=== PATIENT | female | born 1940 | race Caucasian/White ===

== ENCOUNTER 2018-11-08 08:38 | Day surgery (SDC) | payer OTHER, BC ==
--- OUTSIDE RECORDS SUMMARY | 2018-11-08 08:42 | XMS REPORT | Clinical Summary ---
:1940 Author Organization [facility] Address [address] [place] [address] Care Team Providers Name Role Phone Jhon Kelley MD Primary Care Provider Allergies Active Allergy Reactions Severity Noted Date Comments Cephalexin 01/04/2016 Unknown reaction Levofloxacin 01/04/2016 Mouth trush Sulfa (Sulfonamide Other (See Comments) 01/04/2016 Mouth trush Antibiotics) Medications Medication Sig Dispensed Refills Start Date End Date Status thyroid, pork, Take 15 mg by 0 Active (ARMOUR THYROID) 15 mouth daily. mg tablet pravastatin Take 40 mg by 0 Active (PRAVACHOL) 40 MG mouth daily. tablet metFORMIN Take 1,000 mg by 0 Active (GLUCOPHAGE) 1,000 mouth 2 (two) mg tablet times a day with meals. gabapentin Take 600 mg by 0 Active (NEURONTIN) 300 mg mouth every capsule morning. aspirin (ECOTRIN) Take 81 mg by 0 Active 81 MG enteric mouth nightly. coated tablet benzonatate Take 100 mg by 0 Active (TESSALON) 100 MG mouth 3 (three) capsule times a day as needed for cough. spironolactone Take 1 tablet 90 tablet 3 04/20/2018 04/20/19 Active (ALDACTONE) 50 MG (50 mg total) by 20 tabletIndications: mouth daily. SOB (shortness of breath) doxepin (SINEquan) Take 50 mg by 0 Active 50 MG capsule mouth nightly. DULoxetine Take 60 mg by 0 Active (CYMBALTA) 60 MG mouth daily. capsule clopidogrel Take 75 mg by 0 Active (PLAVIX) 75 mg mouth nightly. tablet fluticasone 2 sprays by Each 0 Active (FLONASE) 50 Nare route daily mcg/actuation nasal as needed for spray rhinitis. traMADol (ULTRAM) Take 50 mg by 0 Active 50 mg tablet mouth every 6 (six) hours as needed for moderate pain. multivitamin Take 1 tablet by 0 Active (THERAGRAN) tablet mouth daily. LORATADINE-PSEUDOEP Take 1 tablet by 0 Active HEDRINE ORAL mouth daily as needed (for allergies). losartan-hydrochlor Take 1 tablet by 90 tablet 3 05/10/2018 Active othiazide (HYZAAR) mouth daily. 100-25 mg per tablet PROAIR HFA 90 INL 2 PFS PO QID 2 05/03/2018 Active mcg/actuation PRN inhaler doxepin (SINEquan) doxepin 50 mg 0 05/05/19 Discontinued 50 MG capsule capsule 19 DULoxetine duloxetine 60 mg 0 05/05/19 Discontinued (CYMBALTA) 60 MG capsule,delayed 19 capsule release fluticasone Inhale as needed 0 05/05/19 Discontinued (FLONASE) 50 by nasal route 19 mcg/actuation nasal for 30 days. spray clopidogrel clopidogrel 75 0 05/05/19 Discontinued (PLAVIX) 75 mg mg tablet 19 tablet magnesium oxide 400 Take 1 tablet by 0 05/05/19 Discontinued mg capsule mouth daily. 19 MULTIVITAMIN ORAL Take by mouth. 0 05/05/19 Discontinued Take daily as 19 directed ibuprofen Take 200 mg by 0 05/08/19 Discontinued (ADVIL,MOTRIN) 200 mouth every 6 19 MG tablet (six) hours as needed for mild pain. CETIRIZINE Take by mouth. 0 05/05/19 Discontinued HCL/PSEUDOEPHEDRINE Take daily 19 (ZYRTEC-D ORAL) losartan-hydrochlor Take 1 tablet by 0 01/06/20 Discontinued othiazide (HYZAAR) mouth daily. 18 100-25 mg per tablet amLODIPine Take 1 tablet 30 tablet 11 02/10/2017 01/06/20 Discontinued (NORVASC) 10 mg (10 mg total) by 18 tabletIndications: mouth daily. Coronary artery disease involving andreafski coronary artery of andreafski heart without angina pectoris, Essential hypertension, Other specified transient cerebral ischemias furosemide (LASIX) Take 1 tablet 90 tablet 3 02/13/2017 02/14/20 40 mg (40 mg total) by 18 tabletIndications: mouth daily. SOB (shortness of breath) potassium chloride Take 1 tablet 180 tablet 2 07/21/2017 01/06/20 Discontinued (K-DUR) 20 MEQ CR (20 mEq total) 18 tablet by mouth 2 (two) times a day. spironolactone Take 100 mg by 0 04/20/19 Discontinued (ALDACTONE) 100 MG mouth daily. 19 tablet carvedilol (COREG) Take 1 tablet 60 tablet 11 09/22/2017 01/06/20 Discontinued 6.25 MG tablet (6.25 mg total) 18 by mouth 2 (two) times a day. multivit with Take by mouth. 0 05/05/19 Discontinued iron,minerals 19 (CALCET PLUS ORAL) COZAAR 25 mg tablet 0 12/04/2017 04/20/19 Discontinued 19 carvedilol (COREG) Take 1 tablet 180 tablet 3 01/05/2018 05/04/19 Discontinued 12.5 MG tablet (12.5 mg total) 19 by mouth 2 (two) times a day. traMADol-acetaminop TK 1 T PO BID 2 01/29/2018 05/05/19 Discontinued hen (ULTRACET) PRN 19 37.5-325 mg per tablet losartan-hydrochlor Take 1 tablet by 0 05/10/19 Discontinued othiazide (HYZAAR) mouth daily. 19 100-25 mg per tablet carvedilol (COREG) 0 05/03/2018 05/04/19 Discontinued 3.125 MG tablet 19 loratadine-pseudoep Take 1 tablet by 0 05/05/19 Discontinued HEDrine (CLARITIN-D mouth daily as 19 24-hour) 10-240 mg needed for per 24 hr tablet allergies. furosemide (LASIX) Take 40 mg by 0 05/08/19 Discontinued 40 mg tablet mouth daily. 19 furosemide (LASIX) Take 1 tablet 60 tablet 0 05/08/2018 06/08/19 40 mg tablet (40 mg total) by 19 mouth 2 (two) times a day for 30 days. Active Problems Problem Noted Date Biventricular cardiac pacemaker in situ 05/20/2018 Overview: PM incision site is dry and healing well. 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 01/04/2016 Coronary arteriosclerosis in andreafski artery 01/04/2016 Occluded coronary artery stent 01/04/2016 Essential hypertension 01/04/2016 Hyperlipidemia 01/04/2016 Peripheral vascular disease 01/04/2016 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 Encounters Date Type Specialty Care Team Description 06/08/2018 Office Visit Cardiology Daryl Bradycardia (Primary Ivanna Gardner) 06/08/2018 Orders Only Cardiology Hugo Brito MD 05/20/2018 Office Visit Cardiology Celine Reagan Bradycardia (Primary Dx); Zee Mcbride NP Essential hypertension; S/P TAVR (transcatheter aortic valve replacement); Biventricular cardiac pacemaker in situ 05/10/2018 Refill Cardiology Evens Hernandez Refill Elvia Tim, FORTINO 05/08/2018 Patient Outreach Quality Stepahnie Kingston, FORTINO 05/06/2018 Surgery Procedural Daryl, Pacemaker insertion Cardiology Hugo Anna, new or replacement MD Edson Ann [[id number] (CPT)] 05/05/2018 - Hospital Encounter General Internal Aide Lindquist, Bradycardia (Primary 05/08/2018 Medicine MD Dx) Dontae Rebollar DO 05/04/2018 Office Visit Cardiology Rene Vilchis SOB (shortness of breath) ( Primary Dx); MD Dena Aortic valve disorder; S/P TAVR (transcatheter aortic valve replacement); Dizzy; Bradycardia 04/20/2018 Office Visit Cardiology Rene Vilchis Dizzy (Primary Dx); MD Dena SOB (shortness of breath); Coronary artery disease involving andreafski coronary artery of andreafski heart without angina pectoris; History of coronary artery bypass graft; S/P TAVR (transcatheter aortic valve replacement) 01/05/2018 Office Visit Cardiology Rene Vilchis History of coronary artery bypass graft (Primary Dx); MD Dena S/P TAVR (transcatheter aortic valve replacement) after 11/07/2017 Family History Medical History Relation Name Comments Cancer Father Diabetes Maternal Grandmother Heart disease Maternal Grandmother Cancer Mother Diabetes Mother Relation Name Status Comments Father bladder Maternal Grandmother Mother Social History Tobacco Use Types Packs/Day Years Used Date Former Smoker Smokeless Tobacco: Never Used Alcohol Use Drinks/Week oz/Week Comments No Sex Assigned at Date Recorded Not on file Job Start Date Occupation Industry Not on file Not on file Not on file Travel History Travel Start Travel End No recent travel history available. Last Filed Vital Signs Vital Sign Reading Time Taken Blood Pressure 117/56 06/08/2018 8:54 AM CDT Pulse 93 06/08/2018 8:54 AM CDT Temperature 37 C (98.6 F) 05/08/2018 11:53 AM CAN REFORMING MACHINE OPERATOR Respiratory Rate 14 06/08/2018 8:54 AM CDT Oxygen Saturation 96% 05/08/2018 11:53 AM CAN REFORMING MACHINE OPERATOR Inhaled Oxygen Concentration - - Weight 104 kg (230 lb) 06/08/2018 8:54 AM CDT Height 160 cm (5' 3") 06/08/2018 8:54 AM CDT Body Mass Index 40.74 06/08/2018 8:54 AM CDT Plan of Treatment Date Type Specialty Care Team Description 12/14/2018 Office Visit Cardiology Hugo Brito MD [address] [facility] [address] [place] [address] [phone] 04/19/2019 Office Visit Cardiology Rene Vilchis MD [address] [phone] Health Maintenance Due Date Last Done Comments SHINGLES VACCINES (#1) 01/01/1990 65+ PNEUMOCOCCAL VACCINE (1 of 2 - PCV13) 01/01/2005 INFLUENZA VACCINE 10/28/2018 Implants Implanted Type Area Development Analyst Device Shelf Model / Identifier Expiration Serial / Date Lot Ellen Peters Mp - [id number] - [id number] Cardiac Pacemaker N/A: 2019 [id number] / Implanted: Qty: 1 on 05/06/2018 by Hugo Brito MD Generators N/ A [id number] / [id number] Tendril Sts, Pacemaker Leads, Model 2088tc/58 - [id number] - [id number] Cardiac Pacing N/A: 12/28/2019 [id number]/58 / Implanted: Qty: 1 on 05/06/2018 by Hugo Brito MD Leads or N/A [id number] / Electrodes or [id number] Accessories Quartet, Lv Leads, Model 1458q-86 - [id number] - [id number] Cardiac Pacing N/ A: 01/27/2021 [id number] / Implanted: Qty: 1 on 05/06/2018 by Hugo Brito MD Leads or N/A [id number] / Electrodes or [id number] Accessories Tendril Sts, Pacemaker Leads, Model 2087tc/52 - [id number] - [id number] Cardiac Pacing N/A: 01/27/20212087TC/52 / Implanted: Qty: 1 on 05/06/2018 by Hugo Brito MD Leads or N/A [id number] / Electrodes or [id number] Accessories Envelope Pcemkr Antbactl Fully Resorb Aigisrxr - [id number] Cardiovascular N/A: [employer] [id number] / Implanted: 05/06/2018 (Quantity not on file) Implants N/A / Procedures Procedure Name Priority Date/Time Associated Comments Diagnosis ECG 12-LEAD Routine 06/08/2018 8:54 Bradycardia Results for this AM CDT procedure are in the results section. CV PACEMAKER DEFIB ILR Routine 06/08/2018 INTERROGATION ECG 12-LEAD Routine 05/20/2018 9:34 Bradycardia Results for this AM CAN REFORMING MACHINE OPERATOR procedure are in the results section. CV PACEMAKER DEFIB ILR Routine 05/20/2018 INTERROGATION POC GLUCOSE Routine 05/08/2018 11:49 Results for this AM CAN REFORMING MACHINE OPERATOR procedure are in the results section. POC GLUCOSE Routine 05/08/2018 7:29 Results for this AM CAN REFORMING MACHINE OPERATOR procedure are in the results section. ESTIMATED GFR Routine 05/08/2018 4:10 Results for this AM CAN REFORMING MACHINE OPERATOR procedure are in the results section. COMPREHENSIVE METABOLIC Routine 05/08/2018 4:10 Results for this PANEL AM CAN REFORMING MACHINE OPERATOR procedure are in the results section. CBC WITH PLATELET AND Routine 05/08/2018 4:10 Results for this DIFFERENTIAL AM CAN REFORMING MACHINE OPERATOR procedure are in the results section. MAGNESIUM LEVEL Routine 05/08/2018 4:10 Results for this AM CAN REFORMING MACHINE OPERATOR procedure are in the results section. POC GLUCOSE Routine 05/07/2018 8:54 Results for this PM CAN REFORMING MACHINE OPERATOR procedure are in the results section. POC GLUCOSE Routine 05/07/2018 5:17 Results for this PM CAN REFORMING MACHINE OPERATOR procedure are in the results section. POC GLUCOSE Routine 05/07/2018 10:28 Results for this AM CAN REFORMING MACHINE OPERATOR procedure are in the results section. POC GLUCOSE Routine 05/07/2018 7:50 Results for this AM CAN REFORMING MACHINE OPERATOR procedure are in the results section. POC GLUCOSE Routine 05/07/2018 5:55 Results for this AM CAN REFORMING MACHINE OPERATOR procedure are in the results section. ESTIMATED GFR Routine 05/07/2018 3:42 Results for this AM CAN REFORMING MACHINE OPERATOR procedure are in the results section. PROTHROMBIN TIME WITH Routine 05/07/2018 3:42 Results for this INR AM CAN REFORMING MACHINE OPERATOR procedure are in the results section. COMPREHENSIVE METABOLIC Routine 05/07/2018 3:42 Results for this PANEL AM CAN REFORMING MACHINE OPERATOR procedure are in the results section. CBC WITH PLATELET AND Routine 05/07/2018 3:42 Results for this DIFFERENTIAL AM CAN REFORMING MACHINE OPERATOR procedure are in the results section. MAGNESIUM LEVEL Routine 05/07/2018 3:42 Results for this AM CAN REFORMING MACHINE OPERATOR procedure are in the results section. ECG PRE/POST OP Routine 05/07/2018 12:58 Results for this AM CAN REFORMING MACHINE OPERATOR procedure are in the results section. XR CHEST 1 VW PORTABLE STAT 05/06/2018 9:09 Results for this PM CAN REFORMING MACHINE OPERATOR procedure are in the results section. POC GLUCOSE Routine 05/06/2018 8:46 Results for this PM CAN REFORMING MACHINE OPERATOR procedure are in the results section. ECG PRE/POST OP STAT 05/06/2018 7:47 Results for this PM CAN REFORMING MACHINE OPERATOR procedure are in the results section. EP PACEMAKER INSERTION Routine 05/06/2018 6:55 Results for this NEW OR REPLACEMENT PM CAN REFORMING MACHINE OPERATOR procedure are in the results section. ESTIMATED GFR STAT 05/06/2018 11:44 Results for this AM CAN REFORMING MACHINE OPERATOR procedure are in the results section. BASIC METABOLIC PANEL STAT 05/06/2018 11:44 Results for this AM CAN REFORMING MACHINE OPERATOR procedure are in the results section. POC GLUCOSE Routine 05/06/2018 11:24 Results for this AM CAN REFORMING MACHINE OPERATOR procedure are in the results section. POC GLUCOSE Routine 05/06/2018 7:53 Results for this AM CAN REFORMING MACHINE OPERATOR procedure are in the results section. XR CHEST 1 VW PORTABLE Routine 05/06/2018 5:20 Results for this AM CAN REFORMING MACHINE OPERATOR procedure are in the results section. TYPE AND SCREEN Routine 05/06/2018 3:50 Results for this AM CAN REFORMING MACHINE OPERATOR procedure are in the results section. ESTIMATED GFR Routine 05/06/2018 2:48 Results for this AM CAN REFORMING MACHINE OPERATOR procedure are in the results section. COMPREHENSIVE METABOLIC Routine 05/06/2018 2:48 Results for this PANEL AM CAN REFORMING MACHINE OPERATOR procedure are in the results section. HC COMPLETE BLD COUNT Routine 05/06/2018 2:48 Results for this W/AUTO DIFF AM CAN REFORMING MACHINE OPERATOR procedure are in the results section. MAGNESIUM LEVEL Routine 05/06/2018 2:48 Results for this AM CAN REFORMING MACHINE OPERATOR procedure are in the results section. LIPID PANEL Routine 05/06/2018 2:48 Results for this AM CAN REFORMING MACHINE OPERATOR procedure are in the results section. HEMOGLOBIN A1C Routine 05/06/2018 2:48 Results for this AM CAN REFORMING MACHINE OPERATOR procedure are in the results section. POC GLUCOSE Routine 05/05/2018 9:11 Results for this PM CAN REFORMING MACHINE OPERATOR procedure are in the results section. ECG 12-LEAD Routine 05/05/2018 9:04 Results for this PM CAN REFORMING MACHINE OPERATOR procedure are in the results section. TROPONIN STAT 05/05/2018 6:02 Results for this PM CAN REFORMING MACHINE OPERATOR procedure are in the results section. MAGNESIUM LEVEL STAT 05/05/2018 6:02 Results for this PM CAN REFORMING MACHINE OPERATOR procedure are in the results section. ESTIMATED GFR STAT 05/05/2018 6:02 Results for this PM CAN REFORMING MACHINE OPERATOR procedure are in the results section. BASIC METABOLIC PANEL STAT 05/05/2018 6:02 Results for this PM CAN REFORMING MACHINE OPERATOR procedure are in the results section. HC COMPLETE BLD COUNT STAT 05/05/2018 6:00 Results for this W/AUTO DIFF PM CAN REFORMING MACHINE OPERATOR procedure are in the results section. POC GLUCOSE Routine 05/05/2018 5:25 Results for this PM CAN REFORMING MACHINE OPERATOR procedure are in the results section. T4, FREE Routine 05/05/2018 2:26 Results for this PM CAN REFORMING MACHINE OPERATOR procedure are in the results section. THYROID STIMULATING Routine 05/05/2018 2:26 Results for this HORMONE PM CAN REFORMING MACHINE OPERATOR procedure are in the results section. TROPONIN Timed 05/05/2018 2:26 Results for this PM CAN REFORMING MACHINE OPERATOR procedure are in the results section. XR CHEST 1 VW PORTABLE STAT 05/05/2018 12:36 Results for this PM CAN REFORMING MACHINE OPERATOR procedure are in the results section. THYROID STIMULATING STAT 05/05/2018 12:10 Results for this HORMONE PM CAN REFORMING MACHINE OPERATOR procedure are in the results section. ESTIMATED GFR STAT 05/05/2018 12:10 Results for this PM CAN REFORMING MACHINE OPERATOR procedure are in the results section. PARTIAL THROMBOPLASTIN STAT 05/05/2018 12:10 Results for this TIME (PTT) PM CAN REFORMING MACHINE OPERATOR procedure are in the results section. B NATRIURETIC PEPTIDE STAT 05/05/2018 12:10 Results for this PM CAN REFORMING MACHINE OPERATOR procedure are in the results section. TROPONIN STAT 05/05/2018 12:10 Results for this PM CAN REFORMING MACHINE OPERATOR procedure are in the results section. COMPREHENSIVE METABOLIC STAT 05/05/2018 12:10 Results for this PANEL PM CAN REFORMING MACHINE OPERATOR procedure are in the results section. HC COMPLETE BLD COUNT STAT 05/05/2018 12:10 Results for this W/AUTO DIFF PM CAN REFORMING MACHINE OPERATOR procedure are in the results section. IA CRITICAL CARE, E/M Routine 05/05/2018 12:08 Results for this 30-74 MINUTES PM CAN REFORMING MACHINE OPERATOR procedure are in the results section. ECG 12-LEAD STAT 05/05/2018 11:46 Results for this AM CAN REFORMING MACHINE OPERATOR procedure are in the results section. ECHOCARDIOGRAM 2D Routine 04/28/2018 4:51 Dizzy Results for this COMPLETE W MMODE PM CAN REFORMING MACHINE OPERATOR SOB (shortness of procedure are in SPECTRAL COLOR DOPPLER breath) the results (13404) section. US CAROTID DUPLEX Routine 04/20/2018 2:00 Dizzy Results for this BILATERAL PM CAN REFORMING MACHINE OPERATOR SOB (shortness of procedure are in breath) the results Coronary artery section. disease involving andreafski coronary artery of andreafski heart without angina pectoris ECG 12-LEAD Routine 04/20/2018 11:22 Dizzy Results for this AM CAN REFORMING MACHINE OPERATOR SOB (shortness of procedure are in breath) the results section. after 11/07/2017 Results ECG 12 lead (06/08/2018 8:54 AM CDT)Only the most recent of5 resultswithin the time period is included. Ventricular rate 82 [facility] Atrial rate 82 [facility] IA interval 136 [facility] QRSD interval 168 [facility] QT interval 438 [facility] QTC interval 511 [facility] P axis 1 73 [facility] QRS axis 1 261 [facility] T wave axis 39 [facility] EKG impression Electronic ventricular [facility] pacemaker-In automated comparison with ECG of 20-MAY-2018 09:34,-Vent. rate has increased BY 7 BPM- Specimen Narrative Performed At Performing Organization Address City/State/Zipcode Phone Number [facility] MUSE [address] [place] [phone] CV pacemaker defib or ilr interrogation (06/08/2018) Narrative Performed At CV pacemaker defib or ilr interrogation (05/20/2018) Narrative Performed At POC glucose (05/08/2018 11:49 AM CAN REFORMING MACHINE OPERATOR)Only the most recent of12 resultswithin the time period is included. [facility] POC glucose 176 (H) 65 - 99 mg/dL [facility] Comment: [facility] Notified RN Meter ID: [id number] Zinc Plater: Aldo Douglas Specimen Performing Organization Address [facility] Phone Number [facility] DEPARTMENT OF PATHOLOGY AND [address] [place] [address] Estimated GFR (05/08/2018 4:10 AM CAN REFORMING MACHINE OPERATOR)Only the most recent of6 resultswithin the time period is included. [facility] Estimated GFR 57 (A) mL/min/1.73 [facility] Comment: [address] CatergoryUnitsInterpretation G1 >=90 Normal or high G2 60-89Mildly decreased [id number] to moderately decreased [id number] to severely decreased G4 15-29Severely decreased G5 <15Kidney failure The eGFR was calculated using the Chronic Kidney Disease Epidemiology Collaboration (CKD-EPI) equation. Interpretation is based on recommendations of the National Kidney Foundation-Kidney Disease Outcomes Quality Initiative (NKF-KDOQI) published in 2014. Specimen Plasma specimen Performing Organization Address City/[facility]/Zipcode Phone Number [facility] DEPARTMENT OF PATHOLOGY AND [address] [place] [address] CBC with platelet and differential (05/08/2018 4:10 AM CAN REFORMING MACHINE OPERATOR)Only the most recent of5 resultswithin the time period is included. [facility] WBC 10.37 4.50 - 11.00 [facility] k/uL [facility] RBC 3.97 (L) 4.20 - 5.50 [facility] m/uL [facility] HGB 12.3 12.0 - 16.0 [facility] g/dL [facility] HCT 39.6 37.0 - 47.0 % [facility] MCV 99.7 82.0 - 100.0 [facility] MCH 31.0 27.0 - 34.0 pg [facility] MCHC 31.1 31.0 - 37.0 [facility] g/dL [facility] RDW - SD 53.6 37.0 - 55.0 fL [facility] MPV 10.9 8.8 - 13.2 fL [facility] Platelet count 276 150 - 400 k/uL [facility] Nucleated RBC 0.00 /100 WBC [facility] Neutrophils 59.5 39.0 - 69.0 % [facility] Lymphocytes 22.7 (L) 25.0 - 45.0 % [facility] Monocytes 9.3 0.0 - 10.0 % [facility] Eosinophils 7.3 (H) 0.0 - 5.0 % [facility] Basophils 0.9 0.0 - 1.0 % [facility] Immature granulocytes 0.3Comment: 0.0 - 1.0 % [facility] "Immature [facility] granulocytes" (promyelocytes , myelocytes, metamyelocytes ) Specimen Blood Performing Organization Address City/[facility] Phone Number [facility] DEPARTMENT OF PATHOLOGY AND [address] [place] [phone] Magnesium level (05/08/2018 4:10 AM CAN REFORMING MACHINE OPERATOR)Only the most recent of4 resultswithin the time period is included. Magnesium 2.1 1.6 - 2.4 mg/dL [facility] Specimen Plasma specimen Performing Organization Address City/[facility] Phone Number [facility] DEPARTMENT OF PATHOLOGY AND [address] [place] [phone] Comprehensive metabolic panel (05/08/2018 4:10 AM CAN REFORMING MACHINE OPERATOR)Only the most recent of4 resultswithin the time period is included. Sodium 135 135 - 148 [facility] mEq/L [facility] Potassium 4.0 3.5 - 5.0 [facility] mEq/L [facility] Chloride 96 (L) 98 - 112 mEq/L [facility] CO2 27 24 - 31 mEq/L [facility] Anion gap 12@ANIO 7 - 15 mEq/L [facility] BUN 23 8 - 23 mg/dL [facility] Creatinine 0.96 (H) 0.50 - 0.90 [facility] mg/dL HOSPITAL Glucose 162 (H) 65 - 99 mg/dL [facility] Calcium 9.5 8.8 - 10.2 [facility] mg/dL [facility] Protein 7.2 6.3 - 8.3 g/dL [facility] Comment: [facility] [place] 4.6-7.0 g/dL 1 week 4.4-7.6 g/dL 7 months-1year5.1-7.3 g/dL 1-2 years5.6-7.5 g/dL >3 years6.0-8.0 g/dL 18-150 6.3-8.3 g/dL Albumin 3.8 3.5 - 5.0 g/dL [facility] A/G ratio 1.1 0.7 - 3.8 [facility] Alkaline phosphatase 85 35 - 104 U/L [facility] AST 18 10 - 35 U/L [facility] ALT 11 5 - 50 U/L [facility] Total bilirubin 0.7 0.0 - 1.2 [facility] mg/dL [facility] Specimen Plasma specimen Performing Organization Address City/[facility]/Zipcode Phone Number [facility] DEPARTMENT OF PATHOLOGY AND [address] [place] [phone] Prothrombin time with INR (05/07/2018 3:42 AM CAN REFORMING MACHINE OPERATOR) Prothrombin time 14.3 11.5 - 14.5 [facility] INR 1.1 [place] Comment: [facility] International Normalized Ratio (INR) is a therapeutic HOSPITAL monitoring tool for patients who are stable on oral anticoagulant therapy. An INR of 2.0-3.0 is suggested for deep vein thrombosis/pulmonary embolism. Specimen Blood Performing Organization Address City/[facility]/Zipcode Phone Number [facility] DEPARTMENT OF PATHOLOGY AND [address] [place] [phone] ECG Pre/Post Op-Tomorrow (05/07/2018 12:58 AM CAN REFORMING MACHINE OPERATOR)Only the most recent of2 resultswithin the time period is included. Ventricular rate 68 [facility] Atrial rate 68 [facility] IA interval 156 [facility] QRSD interval 178 [facility] QT interval 508 [facility] QTC interval 540 [facility] P axis 1 38 [facility] QRS axis 1 -51 [facility] T wave axis 25 [facility] EKG impression Atrial-sensed [facility] ventricular-paced rhythm-Abnormal ECG-In automated comparison with ECG of 07-MAY-2018 00:57,-No significant change was found- Specimen Narrative Performed At Performing Organization Address City/[facility] Phone Number [facility] [employer] [address] [place] [address] XR Chest 1 Vw Portable (05/06/2018 9:09 PM CAN REFORMING MACHINE OPERATOR)Only the most recent of3 resultswithin the time period is included. Specimen Narrative Performed At EXAMINATION:XR CHEST 1 VW PORTABLE [facility] CLINICAL HISTORY: 78 years Females p PPM COMPARISON:05/06/2018 0428 hours IMPRESSION: 1.There is been interval placement of a left subclavian biventricular pacemaker. There is no evidence of pneumothorax. 2.Sternotomy wires are present. The heart size is at the upper limits of normal.The aorta is atherosclerotic. 3.There is no evidence of pulmonary edema. Minimal atelectasis is present in the right mid and lower lung zone. There are no focal consolidations or effusions. [facility]-[id number] Procedure Note Hm Interface, Radiology Results Incoming - 05/06/2018 9:17 PM CAN REFORMING MACHINE OPERATOR EXAMINATION: XR CHEST 1 VW PORTABLE CLINICAL HISTORY: 78 years Female s p PPM COMPARISON: 05/06/2018 0428 hours IMPRESSION: 1. There is been interval placement of a left subclavian biventricular pacemaker. There is no evidence of pneumothorax. 2. Sternotomy wires are present. The heart size is at the upper limits of normal. The aorta is atherosclerotic. 3. There is no evidence of pulmonary edema. Minimal atelectasis is present in the right mid and lower lung zone. There are no focal consolidations or effusions. [facility]-[id number] Performing Organization Address City/[facility]/Zipcode Phone Number [facility] [address] [place] [address] Cv electrophysiology procedure (05/06/2018 6:55 PM CAN REFORMING MACHINE OPERATOR) Specimen Narrative Performed At ELECTROPHYSIOLOGY SERVICE OPERATIVE REPORT SYNG PREPROCEDURE DIAGNOSES: 1. High degree AV block 2. LBBB 3. IHD- S/P CABG 4. S/p TAVR 5. Hypertension 6. PAD 7. HF with pulmonary edema POSTPROCEDURE DIAGNOSIS: 1. Status post successful implant of an atrio-biventricular pacemaker and leads. TITLE OF PROCEDURES: 1. Implant of an atrio-biventricular pacemaker and leads 2. Coronary sinus venography. 3. LV lead placement via the coronary sinus. 4. Conscious sedation for 60 min. ATTENDING SURGEON: Dr Hugo Brito ASSISTING SURGEON: Dr Benjamin Peña, Clinical Cardiac Electrophysiology fellow ANESTHESIA: conscious sedation COMPLICATIONS: None. INDICATIONS: The patient is a 78 y.o. female with history ofCAD s/p CABG - SHOEMAKER to LAD, SVG to D1, SVG to OM1/OM, S/P TAVR 29mm evolut R (2016), hypertension, HLD, PAD with carotid stent. Admitted with high degree AV block referred for implant of a dual chamber pacemaker. DOCUMENTATION OF INFORMED CONSENT: Prior to the procedure we had discussed in detail the risks, benefits, and alternatives to implant of an atrio-biventricularpacemaker and leads. In particular, the risks discussed included but were not limited to the risks of , bleeding, perforation, infection, pain, lead dislodgement, device or lead malfunction, failure or recall as well as the need for future battery change surgeries.All questions were fully answered and they wished to proceed. DETAILS: After written informed consent was obtained in the fasting, non-sedated state, the patient was brought to the cardiac catheterization laboratory. The patient was prepped and draped in the usual sterile fashion.The patient was given routine IV sedation using Versed and fentanyl. Intravenous antibiotics were administered prior to the incision.The delto-pectoral incision site was infiltrated with 1% lidocaine.Sharp dissection was performed; we continued down to the pectoralis fascia and created a pocket using blunt dissection and electrocautery. Two separate punctures of the subclavian vein outside the ribcage were made using a modified Seldinger technique and guided by fluoroscopy.We also access the cephalic vein via cutdown technique. Through these, we delivered two J-tipped wires and one Glidewire to the inferior vena cava. Using peel-away sheaths, we delivered first a right ventricular, then the left ventricular lead and then the right atrial lead.Each lead was positioned under fluoroscopic guidance.Leads were actively fixed.Lead characteristics were confirmed.High-output pacing was used to exclude diaphragmatic capture.The sheath was peeled away and the lead was sutured to the pectoralis fascia with 0 Ethibond suture.The right ventricular lead was placed in the right ventricle apical septum.The right atrial lead was placed at the base of the right atrial appendage. The coronary sinus was now cannulated with the [employer] coronary sinus outer guide sheath over an AL2 inner guide over the Glidewire.Once cannulated, a balloon catheter was advanced into the coronary sinus and occlusive balloon angiography was performed in the VENKATESH and LEMOS projections.This demonstrated the optimal vein branch.The quadripolar pacing lead was delivered over Whisper wire to the optimal location within this branch.Lead characteristics at this location were confirmed. High-output pacing was used to determine the diaphragmatic capture threshold.The sheath was peeled away without dislodging lead.Lead characteristics were reconfirmed.Lead was sutured to the pectoralis fascia with 0 Ethibond suture. The pocket was copiously irrigated with antibiotic-containing solution. The leads were connected to an atrio-biventricular pacemaker generator, which along with the leads was placed in antibiotic envelope and the in the pocket.The incision was now closed in layers with 2-0 Vicryl for the fascia layer, 3-0 Vicryl for the subcuticular layer, and 4-0 Monocryl for the subcutaneous layer.Dermabond was applied to the incision and an occlusive dressing was applied. ESTIMATED BLOOD LOSS: 20 ml. IMPLANTED MATERIALS: PACEMAKER:SJM model [id number] serial [id number] RA LEAD:SJMmodel 2088TC/52 serial [id number] RV LEAD: SJMmodel 8TC/58 serial [id number] LV LEAD:SJMmodel 1458Q/86 serial [id number] MEASURED DATA: RA LEAD:P-waves: 3 mV, threshold 0.75 V at 0.4ms, impedance 460 ohms RV LEAD:R-waves: >12 mV, threshold 0.5V at 0.4 ms, impedance 580ohms LV LEAD:threshold 2.5(D1-RV)V at 1ms, impedance 690 ohms FINAL DIAGNOSIS: Status post successful implant of an atrio-biventricular pacemaker generator and leads. PLAN: The patient will receive routine post-procedure chest x-ray, 12-lead EKG, and intravenous antibiotics.The device will be interrogated in the morning and patient will be enrolled in remote monitoring. Performing Organization Address [facility] Phone Number [facility] [address] [place] [phone] Basic metabolic panel (05/06/2018 11:44 AM CAN REFORMING MACHINE OPERATOR)Only the most recent of2 resultswithin the time period is included. Sodium 134 (L) 135 - 148 mEq/L [facility] Potassium 4.3 3.5 - 5.0 mEq/L [facility] Chloride 97 (L) 98 - 112 mEq/L [facility] CO2 27 24 - 31 mEq/L [facility] Anion gap 10@ANIO 7 - 15 mEq/L [facility] BUN 18 8 - 23 mg/dL [facility] Creatinine 0.86 0.50 - 0.90 mg/dL [facility] Glucose 148 (H) 65 - 99 mg/dL [facility] Calcium 9.1 8.8 - 10.2 mg/dL [facility] Specimen Plasma specimen Performing Organization Address [facility] Phone Number [facility] DEPARTMENT OF PATHOLOGY AND [address] [place] [phone] Type and screen (05/06/2018 3:50 AM CAN REFORMING MACHINE OPERATOR) ABO grouping A [facility] Rh type POS [facility] Antibody screen (gel) NEG [facility] Specimen Blood Performing Organization Address City/[facility] Phone [facility] DEPARTMENT OF PATHOLOGY AND [address] [place] [phone] Hemoglobin A1c (05/06/2018 2:48 AM CAN REFORMING MACHINE OPERATOR) Hemoglobin A1C 6.3 (H) 4.0 - 5.6 % [facility] Comment: HOSPITAL HbA1c cutoffs for diagnosing diabetes: 4.0% - 5.6%=normal 5.7% - 6.4%=increased risk for diabetes (prediabetes) >=6.5%=diabetes Goals for glycemic control (ADA 2016) < 7.0%Target for non adults with diabetes. More or less stringent targets may be appropriate for individual patients. <7.5% Target for Children and adolescents with type 1 diabetes. Specimen Blood Performing Organization Address City/[facility] Phone Number [facility] DEPARTMENT OF PATHOLOGY AND [address] [place] [phone] [place] [phone] Lipid panel (05/06/2018 2:48 AM CAN REFORMING MACHINE OPERATOR) Cholesterol 107 <200 mg/dL [facility] Triglycerides 140 <150 mg/dL [facility] HDL cholesterol 33 (L) >40 mg/dL [facility] LDL cholesterol 57Comment: Result <100 mg/dL [place] obtained by direct [facility] LDL measurement [facility] Lipid panel [facility] interpretation Comment: [facility] Total Cholesterol (mg/dL) [facility] <200 Desirable [phone]-cogj >=240High Triglycerides (mg/dL) <150 Normal [id number]-ohgr 200-499High >=500Very high HDL Cholesterol (mg/dL) <40Low (male) <40Low (female) LDL Cholesterol (mg/dL) <100 Optimal 100-129Near or above optimal 605-842Tbubzkfxwo-iwqx 160-189High >=190Very high Risk Catergories that modify LDL goals. Risk CatergoriesLDL goal (mg/dL) CHD and CHD risk equivalent<100 (10-year risk >20%) Multiple (2+) risk factors <130 (10-year risk=<20%) 0-1 risk factors <160 (<10-year risk) Defining levels of lipids in metabolic syndrome Triglycerides>=150 mg/dL HDL Cholesterol Men<40 mg/dL Women<40 mg/dL Non-HDL cholesterol is a second target for therapy in persons with high triglycerides (>=200 mg/dL) Specimen Plasma specimen Performing Organization Address City/[facility]/Zipcode Phone Number [facility] DEPARTMENT OF PATHOLOGY AND [address] [place] [address] [address] Troponin (05/05/2018 6:02 PM CAN REFORMING MACHINE OPERATOR)Only the most recent of3 resultswithin the time period is included. Troponin <0.30 0.00 - 0.30 [facility] Comment: ng/mL HOSPITAL 0.30 - 1.49 ng/mlMay indicate increased risk of acute coronary syndrome. >=1.5 ng/mlConsistent with acute myocardial infarction. The diagnostic value of a single normal or non-diagnostic result is questionable.Serial samples at 2-6 hour intervals are required to rule out acute myocardial injury. Specimen Plasma specimen Performing Organization Address City/[facility] Phone Number [facility] DEPARTMENT OF PATHOLOGY AND [address] [place] [phone] Thyroid stimulating hormone (05/05/2018 2:26 PM CAN REFORMING MACHINE OPERATOR)Only the most recent of2 resultswithin the time period is included. [facility] TSH 2.11 0.27 - 4.20 uIU/mL [facility] Specimen Plasma specimen Performing Organization Address [facility] Phone Number [facility] DEPARTMENT OF PATHOLOGY AND [address] [place] [phone] T4, free (05/05/2018 2:26 PM CAN REFORMING MACHINE OPERATOR) [facility] T4, free 0.9 0.9 - 1.7 ng/dL [facility] Specimen Plasma specimen Performing Organization Address [facility] Phone Number [facility] DEPARTMENT OF PATHOLOGY AND [address] [place] [phone] Partial thromboplastin time, activated (05/05/2018 12:10 PM CAN REFORMING MACHINE OPERATOR) Pathologist [facility] PTT 35.9 23.0 - 36.0 [facility] Comment: [facility] PTT therapeutic range for unfractionated heparin is 61.0-112.0 seconds which corresponds to Anti-Xa 0.3-0.7 U/ml. Specimen Blood Narrative Performed At nurse cristian baires [facility] DEPARTMENT OF PATHOLOGY AND GENOMIC on05/05/201812:45 MEDICINE Performing Organization Address [facility] Phone Number [facility] DEPARTMENT OF PATHOLOGY AND [address] [place] [address]94 B natriuretic peptide (05/05/2018 12:10 PM CAN REFORMING MACHINE OPERATOR) BNP 642 (H) 0 - 100 pg/mL [facility] Specimen Blood Narrative Performed At nurse cristian balderas add [facility] DEPARTMENT OF PATHOLOGY AND GENOMIC on05/05/201812:45 MEDICINE Performing Organization Address City/State/Zipcode Phone Number [facility] DEPARTMENT OF PATHOLOGY AND [address] [place] [address] GENOMIC MEDICINE [address] [address] CRITICAL CARE (05/05/2018 12:08 PM CAN REFORMING MACHINE OPERATOR) Narrative Performed At Aide Lindquist MD 05/05/20189:29 PM Critical Care Performed by: Avis Garcia NP Authorized by: Aide Lindquist MD Critical care provider statement: Critical care time (minutes):30 Critical care was necessary to treat or prevent imminent or life-threatening deterioration of the following conditions:Cardiac failure Critical care was time spent personally by me on the following activities:Blood draw for specimens, development of treatment plan with patient or surrogate, discussions with consultants, discussions with primary provider, examination of patient, ordering and performing treatments and interventions, ordering and review of laboratory studies, ordering and review of radiographic studies, pulse oximetry, re-evaluation of patient's condition and review of old charts Richard 'yes' if you are taking over critical care for this patient from another provider.: no Echocardiogram complete w contrast and 3D if needed (04/28/2018 4:51 PM CAN REFORMING MACHINE OPERATOR) Specimen Narrative Performed At [facility] Echocardiography Report Pat.Name:YAHAIRA SUTHERLAND LPat.ID:[id number] .Date: 04/28/2018 Refer.MD:RENE VILCHIS MD Exam Time: 1:19:00 PMStudy Type:Routine Echo Height:63inWeight: 229lb BSA: 2.05 m2 DOBAge:1940,78Y Sex: FEMALEBP:121/58 HR:59 bpm Sonogrphr: KEEGAN Horowitz FASE Pat. Stat.:OutpatientRoom:[place] Study Status:Final Echo Event ID:[id number] Order ID:[id number] Reason for Study:SOB, suspected cardiac etiology History / Clinical:Coronary Artery Disease, Hypertension, Obesity, Shortness of Breath Procedures:2D Echo, Colorflow Doppler Race:C SUMMARY: LV size is normal. LV EF is hyperdynamic. Estimated EF is >70%. Transcatheter bioprosthetic aortic valve. Normal prosthetic valve velocity and gradient. Moderate to severe calcific mitral stenosis. FINDINGS: LV: LV size is normal. LV EF is hyperdynamic. Overall wall motionis hyperdynamic. Estimated EF is >70%. RV: RV size is normal. RV systolic function is normal. LA: LA volume is severely enlarged. RA: RA size is normal. AO: Aortic root diameter is normal. JERICHO: No pericardial effusion. AV: Transcatheter bioprosthetic aortic valve. Normal prosthetic valvevelocity and gradient. MV: Severe mitral annular calcification. Moderate to severe calcificmitral stenosis. PV: No structural PV abnormalities noted. TV: No structural TV abnormalities noted. Fallon: Hepatic vein pressure is normal, RA pressure < 5mmHg. Other:Insufficient TR jet to estimate PA systolic pressure. MEASUREMENTS: 2D Parasternal [place] LVIDd3.9 cmIndex1.9 cm/m LV Eycy073.8 g(87-129) IVSd 0.9 cmLVM Index 59.4 g/m2 LVPWd1.1 cmRWT0.6 Ao Rtd 3.3 cmIndex1.6 cm/m LA Sng Plane LA Area 34.1 cm2(8.8-23.4) LA Vol 132.1 ml Index64.5 ml/m LA LngAx 7.2 cm DOPPLER AV For Flow/KUMAR AV pkVel 212.2 cm/s (100-170) AV AC/ET 0.3 AV mnVel 140.6 cm/[place] TVI44.9 cm AV pkPG 18 mmHgAVpkAcRt 2740.7 cm/s2 AV Mean G9.6 mmHgAV LeAh753.5 cm/s2 AV AC103 msec (83-118) AV Area2 cm2(3-5) AV ET320 msec LVOT For Flow LVOT Area2.2 cm2 LVOT SV 88.1 ml UHBOnkFzl469.7 cm/sHR56.9 bpm YGDRiwHQ02.6 mmHgLVOT CO5 l/min LVOTmnPG 7.2 mmHgLVOT CI2.4 l/m/m2 LVOT TVI39.6 cm MV For Flow/Valve Assess MV pkVel 185 cm/sMV Dec T 540 msec MV pkPG 13.7 mmHgMV TVI77.1 cm MV Mean G6.6 mmHgMV Area P1/2t1.4 cm2(4-6) Signed 04/29/2018 04:50 PM Denzel Kaplan M.D. Procedure Note Interface, Radiology Results In - 04/29/2018 4:51 PM CAN REFORMING MACHINE OPERATOR [facility] Echocardiography Report Pat.Name: YAHAIRA SUTHERLAND Pat.ID: [id number] .Date: 04/28/2018 Refer.MD: RENE VILCHIS MD Exam Time: 1:19:00 PM Study Type:Routine Echo Height: 63in Weight: 229lb BSA: 2.05 m2 Age: 10 1940,78Y Sex: FEMALE BP: 121/58 HR: 59 bpm Sonogrphr: KEEGAN Horowitz FASE Pat. Stat.:Outpatient Room: [place] Study Status:Final Echo Event ID:[id number] Order ID: [id number] Reason for Study:SOB, suspected cardiac etiology History / Clinical:Coronary Artery Disease, Hypertension, Obesity, Shortness of Breath Procedures:2D Echo, Colorflow Doppler Race: C SUMMARY: LV size is normal. LV EF is hyperdynamic. Estimated EF is >70%. Transcatheter bioprosthetic aortic valve. Normal prosthetic valve velocity and gradient. Moderate to severe calcific mitral stenosis. FINDINGS: LV: LV size is normal. LV EF is hyperdynamic. Overall wall motion is hyperdynamic. Estimated EF is >70%. RV: RV size is normal. RV systolic function is normal. LA: LA volume is severely enlarged. RA: RA size is normal. AO: Aortic root diameter is normal. JERICHO: No pericardial effusion. AV: Transcatheter bioprosthetic aortic valve. Normal prosthetic valve velocity and gradient. MV: Severe mitral annular calcification. Moderate to severe calcific mitral stenosis. PV: No structural PV abnormalities noted. TV: No structural TV abnormalities noted. Fallon: Hepatic vein pressure is normal, RA pressure < 5mmHg. Other: Insufficient TR jet to estimate PA systolic pressure. MEASUREMENTS: 2D Parasternal [place] LVIDd 3.9 cm Index 1.9 cm/m LV Mass 121.8 g (87-129) IVSd 0.9 cm LVM Index 59.4 g/m2 LVPWd 1.1 cm RWT 0.6 Ao Rtd 3.3 cm Index 1.6 cm/m LA Sng Plane LA Area 34.1 cm2 (8.8-23.4) LA Vol 132.1 ml Index 64.5 ml/m LA LngAx 7.2 cm DOPPLER AV For Flow/KUMAR AV pkVel 212.2 cm/s (100-170) AV AC/ET 0.3 AV mnVel 140.6 cm/s AV TVI 44.9 cm AV pkPG 18 mmHg AVpkAcRt 2740.7 cm/s2 AV Mean G 9.6 mmHg AV DeRt 663.5 cm/s2 AV AC 103 msec (83-118) AV Area 2 cm2 (3-5) AV ET 320 msec LVOT For Flow LVOT Area 2.2 cm2 LVOT SV 88.1 ml LVOTpkVel 162.7 cm/s HR 56.9 bpm LVOTpkPG 10.6 mmHg LVOT CO 5 l/min LVOTmnPG 7.2 mmHg LVOT CI 2.4 l/m/m2 LVOT TVI 39.6 cm MV For Flow/Valve Assess MV pkVel 185 cm/s MV Dec T 540 msec MV pkPG 13.7 mmHg MV TVI 77.1 cm MV Mean G 6.6 mmHg MV Area P1/2t 1.4 cm2 (4-6) Signed 04/29/2018 04:50 PM Denzel Kaplan M.D. Performing Organization Address City/State/Zipcode Phone Number [facility] [address] [place] [address] carotid duplex (04/20/2018 2:00 PM CAN REFORMING MACHINE OPERATOR) Specimen Narrative Performed At [facility] Carotid Artery Ultrasound Report Pat.Name:YAHAIRA SUTHERLAND [id number] .Date: 04/20/2018 Refer.MD:RENE VILCHIS MD Exam Time: 1:16:00 PMStudy Type:Carotid Height:63inDOBAge: 1940,78Y Sex: FEMALESonogrphr: Shelley Galvez RVT Pat. Stat.:OutpatientRoom:[place] TapeVol: SD, CPT - 4: 26119 Echo Event ID:[id number] Order ID:[id number] Reason for Study:Bilateral carotid disease and stenosis, S/P bilateral internal carotid artery stenting in 2008. Hx of aortic valve disorder, S/P TAVR, CAD, OCccluded coronary artery stent, HTN. Procedures:Colorflow, Grayscale/2D, Pulsed wave Doppler Race:C SUMMARY: CAROTID ARTERY SCAN RIGHT:There is scattered hard plaquein the common carotid artery. There is patent stent noted in the bulb extending into the proximal internal carotid artery.Colorflow is normal. There is color flow disturbance and elevated velocity noted in the external carotid artery. LEFT: There is smooth intimal lining in the common carotid artery. There is patent stent noted in the bulb extending into the proximal internal carotid artery.Colorflow is normal. There is color flow disturbance and elevated velocity noted in the external carotid artery. PRELIMINARY FINDINGS 1. Patent stent noted in the bulb, extending into proximal internal carotid artery, bilaterally. 2. >50% stenosis in the external carotid artery, bilaterally. 3. Non stenotic scattered plaque noted in the right common carotid artery. PHYSICIAN INTERPRETATION Bilateral carotid duplex exam demonstrate patent stent in bilateral internal carotid arteries with no significant disease.>50% stenosis in the external carotid artery, bilaterally. Antegrade flow in both vertebral arteries. Carotid Findings:RightRosalina Brown.Flw AntegradeAntegrade Subclavian Biphasic Triphasic MEASUREMENTS: DOPPLER Right CCA Dist CCA Dist PSV61.9 cm/sCCA Dist EDV7.74 cm/s Right CCA Mid CCA Mid VSP686 cm/sCCA Mid EDV 11.1 cm/s Right CCA Prox CCA Prox PSV 123 cm/sCCA Prox EDV11.2 cm/s Right Bulb Bulb PSV55.7 cm/sBulb EDV10.8 cm/s Right ECA Prox ECA Prox PSV 331 cm/sECA Prox EDV30.8 cm/s Right ICA Dist ICA Dist PSV84.3 cm/[place] Dist EDV10.8 cm/s Right ICA Mid ICA Mid PSV 84.5 cm/[place] Mid EDV 10.7 cm/s Right ICA Prox ICA Prox PSV96.7 cm/[place] Prox EDV18.4 cm/s Right Vertebral Vertebral PSV 56.6 cm/sVertebral EDV 8.32 cm/s Left CCA Mid CCA Mid [id number] cm/sCCA Mid EDV 12.7 cm/s Left CCA Prox CCA Prox PSV97 cm/sCCA Prox EDV10.5 cm/s Left ECA ECA VOF900 cm/sECA EDV 16.3 cm/s Left ICA Mid ICA Mid [id number] cm/[place] Mid EDV 25.4 cm/s ICA Prox ICA Prox PSV 113 cm/[place] Prox EDV18 cm/s Left Vertebral Vertebral PSV 54 cm/sVertebral EDV 11.7 cm/s Left CCA Dist CCA Dist PSV82 cm/sCCA Dist EDV12 cm/s Left Bulb Bulb PSV78 cm/sBulb EDV12 cm/s Left ICA Dist ICA Dist PSV95 cm/[place] Dist EDV20 cm/s Left ECA Prox ECA Prox PSV 228 cm/sECA Prox EDV16 cm/s Right ICA/CCA Ratio ICA/CCA PSV0.967 Left ICA/CCA Ratio ICA/CCA PSV 0.89 SCA Prox SCA Prox PSV 162 cm/s Left SCA Prox SCA Prox PSV 233 cm/s Signed 04/22/2018 08:23 PM Rene Vilchis MD Procedure Note Interface, Radiology Results In - 04/22/2018 8:24 PM CAN REFORMING MACHINE OPERATOR [facility] Carotid Artery Ultrasound Report Pat.Name: YAHAIRA SUTHERLAND Pat.ID: [id number] St.Date: 04/20/2018 Refer.MD: RENE VILCHIS MD Exam Time: 1:16:00 PM Study Type:Carotid Height: 63in Age: 10 1940,78Y Sex: FEMALE Sonogrphr: Shelley Galvez RVT Pat. Stat.:Outpatient Room: [facility] Vol: SD, CPT - 4: 05147 Echo Event ID:[id number] Order ID: [id number] Reason for Study:Bilateral carotid disease and stenosis, S/P bilateral internal carotid artery stenting in 2008. Hx of aortic valve disorder, S/P TAVR, CAD, OCccluded coronary artery stent, HTN. Procedures:Colorflow, Grayscale/2D, Pulsed wave Doppler Race: C SUMMARY: CAROTID ARTERY SCAN RIGHT: There is scattered hard plaque in the common carotid artery. There is patent stent noted in the bulb extending into the proximal internal carotid artery. Colorflow is normal. There is color flow disturbance and elevated velocity noted in the external carotid artery. LEFT: There is smooth intimal lining in the common carotid artery. There is patent stent noted in the bulb extending into the proximal internal carotid artery. Colorflow is normal. There is color flow disturbance and elevated velocity noted in the external carotid artery. PRELIMINARY FINDINGS 1. Patent stent noted in the bulb, extending into proximal internal carotid artery, bilaterally. 2. >50% stenosis in the external carotid artery, bilaterally. 3. Non stenotic scattered plaque noted in the right common carotid artery. PHYSICIAN INTERPRETATION Bilateral carotid duplex exam demonstrate patent stent in bilateral internal carotid arteries with no significant disease. >50% stenosis in the external carotid artery, bilaterally. Antegrade flow in both vertebral arteries. Carotid Findings: Right Left Verteb.Flw Antegrade Antegrade Subclavian Biphasic Triphasic MEASUREMENTS: DOPPLER Right CCA Dist CCA Dist PSV 61.9 cm/s CCA Dist EDV 7.74 cm/s Right CCA Mid CCA Mid PSV 100 cm/s CCA Mid EDV 11.1 cm/s Right CCA Prox CCA Prox PSV 123 cm/s CCA Prox EDV 11.2 cm/s Right Bulb Bulb PSV 55.7 cm/s Bulb EDV 10.8 cm/s Right ECA Prox ECA Prox PSV 331 cm/s ECA Prox EDV 30.8 cm/s Right ICA Dist ICA Dist PSV 84.3 cm/s ICA Dist EDV 10.8 cm/s Right ICA Mid ICA Mid PSV 84.5 cm/s ICA Mid EDV 10.7 cm/s Right ICA Prox ICA Prox PSV 96.7 cm/s ICA Prox EDV 18.4 cm/s Right Vertebral Vertebral PSV 56.6 cm/s Vertebral EDV 8.32 cm/s Left CCA Mid CCA Mid PSV 127 cm/s CCA Mid EDV 12.7 cm/s Left CCA Prox CCA Prox PSV 97 cm/s CCA Prox EDV 10.5 cm/s Left ECA ECA PSV 228 cm/s ECA EDV 16.3 cm/s Left ICA Mid ICA Mid PSV 112 cm/s ICA Mid EDV 25.4 cm/s ICA Prox ICA Prox PSV 113 cm/s ICA Prox EDV 18 cm/s Left Vertebral Vertebral PSV 54 cm/s Vertebral EDV 11.7 cm/s Left CCA Dist CCA Dist PSV 82 cm/s CCA Dist EDV 12 cm/s Left Bulb Bulb PSV 78 cm/s Bulb EDV 12 cm/s Left ICA Dist ICA Dist PSV 95 cm/s ICA Dist EDV 20 cm/s Left ECA Prox ECA Prox PSV 228 cm/s ECA Prox EDV 16 cm/s Right ICA/CCA Ratio ICA/CCA PSV 0.967 Left ICA/CCA Ratio ICA/CCA PSV 0.89 SCA Prox SCA Prox PSV 162 cm/s Left SCA Prox SCA Prox PSV 233 cm/s Signed 04/22/2018 08:23 PM Rene Vilchis MD Performing Organization Address City/State/[facility] Phone Number [facility] [id number] [place] [address] after 11/07/2017 Insurance Payer Benefit Plan / Subscriber ID Effective Dates Phone Address Type Group MEDICARE MEDICARE PART A xxxxxxxxxxx 2004-Present [place], [place] Medicare AND B BCBS BCBS PAR/TRAD xxxxxxxxxxxx 2016-Present Indemnity PLAN Advance Directives Patient has advance care planning documents on file. For more information, please contact:Daniel [id number] [place] [address]
[2018-11-08] MEDS ORDERED: NS 0.9% VIAL 10 ML ONE (09:16)
[2018-11-08] MEDS ORDERED: BUPIVACAINE 0.25% PF 10 ML VIAL ONE (09:43)
[2018-11-08] MEDS ORDERED: LIDOCAINE 2% MPF 5 ML VIAL ONE (09:43)
[2018-11-08] MEDS ORDERED: NA CHLORIDE 0.9% 500 ML ONE (09:43)
[2018-11-08] MEDS: CYCLOPENTOLATE 1% OPTH 2 ML ONE ×3 (09:55→10:05)
[2018-11-08] MEDS: PHENYLEPHRINE 10% OPTH 5ML ONE ×3 (09:55→10:05)
[2018-11-08] MEDS ORDERED: LIDOCAINE HCL/PF 3.5% OPTH GEL ONE (10:09)
[2018-11-08] MEDS ORDERED: MIDAZOLAM HCL 2 MG/2 ML INJ ONE (10:14)
[2018-11-08] MEDS: TETRACAINE HCL 0.5% 4ML OPTH ONE ×2 (10:53→10:54)
[2018-11-08] MEDS: BALANCED SALT IRRIG PLAIN 500 ML BTL IRR ONE ×2 (10:57→10:59)
[2018-11-08] MEDS: EPINEPHRINE/PF 1 MG/ML AMP ONE ×2 (10:57→10:59)
[2018-11-08] MEDS: LIDOCAINE 1% MPF 2 ML AMPULE ONE ×2 (10:58→10:59)
[2018-11-08] MEDS: DUOVISC 1 KIT OPTH ONE ×2 (10:59→11:02)
[2018-11-08] MEDS: MOXIFLOXACIN HCL 10 DROPS/ML **OR USE OPTH ONE ×2 (10:59→11:02)
[2018-11-08] MEDS ORDERED: FENTANYL CITR 100 MCG/2 ML ONE (11:00)
--- NOTE | 2018-11-08 11:23 | P.BOP ---
Preoperative diagnosis: Combined form of cataract OS Postoperative diagnosis: Same Primary procedure: Phacoemulsification with Symfony IOL OS Estimated blood loss: None Anesthesia: Local (Topical with anesthesia for cataract surgery) Implants: ZXR00 +28.5 Transferred to: Other (Day surgery) Condition: Good
[2018-11-08 11:38] VITALS: BP 131/48; TEMP 97.5; O2SAT 95
--- NOTE | 2018-11-08 21:36 | OP ---
Date of Procedure: 11/08/2018 Surgeon: Maricarmen Ly MD Anesthesiologist: 1. Artem Manrique CRNA. 2. Noman Alvarado MD. Preoperative Diagnosis: Combined form of cataract, left eye. Operation Performed: Phacoemulsification with Symfony intraocular lens implant, left eye. Anesthesia: Per cataract surgery. Complications: None. Description Of Procedure: In the operating room the patient was prepped and draped in the usual ster ile fashion for ophthalmic surgery. A lid speculum was placed in the left eye. Two paracentesis sit es were made superiorly and inferiorly in the limbal cornea. Viscoat was placed in the anterior maria esther carmelina and a crescent blade was used to make a corneal groove and tunnel, and a keratome was used to ent er the anterior chamber. Provisc was placed in the anterior chamber and a 360 degree capsulotomy was performed with a cystitome. The lens was hydrodissected with BSS and rotated freely. The lens was removed with a stop and chop technique. Phaco 7.40 CDE was used to remove the lens. Residual cortex was removed with the irrigation and aspiration. Provisc was placed in the capsular bag. A ZXR00 +2 8.5 lens was placed in the capsular bag without complications. Irrigation and aspiration was used to remove residual viscoelastic. The paracentesis sites were hydrated with BSS. The wound and paracen tesis sites were inspected and found to be watertight. Vigamox 0.07 cc was placed intracamerally at the end of the procedure. The eye was irrigated with balanced salt solution. The eye was patched wi th a soft cotton patch and Calderon metal shield. The patient was returned to day surgery in good condition. Comments: Akten was placed in the eye in Day Surgery and irrigated out of the eye with BSS in the OR . Preservative-free 1% lidocaine was placed in the anterior chamber prior to Viscoat. Also, trace r esidual PSC remained at the end of surgery. Discharge Instructions: Ms. Serna is discharged to home in good condition and is to follow up with Dr. Ly in the morning. DANIELITO/MODL Voice ID: [id number] Report ID: [id number]
== END 2018-11-08 12:05 | disposition home or self-care (01) ==
LOC: OR 08:38
PROVIDERS: ATTEND Ophthalmology Retina Specialist
PROC: 08RK3JZ Replacement of Left Lens with Synthetic Substitute, Percutaneous Approach (ICD-10-PCS; principal; 2018-11-08 10:00)
DX: H25.812 Combined forms of age-related cataract, left eye (principal); H04.123 Dry eye syndrome of bilateral lacrimal glands; E11.319 Type 2 diabetes mellitus with unspecified diabetic retinopathy without macular edema; I10 Essential (primary) hypertension; J44.9 Chronic obstructive pulmonary disease, unspecified; M79.7 Fibromyalgia; E07.9 Disorder of thyroid, unspecified; E78.5 Hyperlipidemia, unspecified; I25.10 Atherosclerotic heart disease of native coronary artery without angina pectoris; Z85.820 Personal history of malignant melanoma of skin; Z85.42 Personal history of malignant neoplasm of other parts of uterus; Z90.710 Acquired absence of both cervix and uterus; Z86.73 Personal history of transient ischemic attack (TIA), and cerebral infarction without residual deficits; Z95.1 Presence of aortocoronary bypass graft; Z87.891 Personal history of nicotine dependence; Z79.82 Long term (current) use of aspirin; Z79.02 Long term (current) use of antithrombotics/antiplatelets; Z88.1 Allergy status to other antibiotic agents; Z83.518 Family history of other specified eye disorder; Z83.3 Family history of diabetes mellitus
CPT/HCPCS: 36415; 84132; 82962; 66984; J0171; J2250; J3010; J2001

== ENCOUNTER 2018-12-12 13:45 | Inpatient (IN) | payer OTHER, BC ==
--- OUTSIDE RECORDS SUMMARY | 2018-12-12 13:48 | XMS REPORT | Clinical Summary ---
:1940 Author Organization [facility] Address [address] [place] [address] Care Team Providers Name Role Phone Jhon Kelley MD Primary Care Provider Allergies Active Allergy Reactions Severity Noted Date Comments Cephalexin 01/04/2016 Unknown reaction Levofloxacin 01/04/2016 Mouth trush Sulfa (Sulfonamide Other (See Comments) 01/04/2016 Mouth trush Antibiotics) Medications Medication Sig Dispensed Refills Start End Date Status Date thyroid, pork, Take 15 mg by 0 Active (ARMOUR THYROID) mouth daily. 15 mg tablet pravastatin Take 40 mg by 0 Active (PRAVACHOL) 40 MG mouth daily. tablet metFORMIN Take 1,000 mg 0 Active (GLUCOPHAGE) 1,000 by mouth 2 mg tablet (two) times a day with meals. gabapentin Take 600 mg by 0 Active (NEURONTIN) 300 mg mouth every capsule morning. aspirin (ECOTRIN) Take 81 mg by 0 Active 81 MG enteric mouth nightly. coated tablet benzonatate Take 100 mg by 0 Active (TESSALON) 100 MG mouth 3 (three) capsule times a day as needed for cough. spironolactone Take 1 tablet 90 tablet 3 04/20/19 Active (ALDACTONE) 50 MG (50 mg total) 9 20 tabletIndications: by mouth daily. SOB (shortness of breath) doxepin (SINEquan) Take 50 mg by 0 Active 50 MG capsule mouth nightly. DULoxetine Take 60 mg by 0 Active (CYMBALTA) 60 MG mouth daily. capsule clopidogrel Take 75 mg by 0 Active (PLAVIX) 75 mg mouth nightly. tablet fluticasone 2 sprays by 0 Active (FLONASE) 50 Each Nare route mcg/actuation daily as needed nasal spray for rhinitis. traMADol (ULTRAM) Take 50 mg by 0 Active 50 mg tablet mouth every 6 (six) hours as needed for moderate pain. multivitamin Take 1 tablet 0 Active (THERAGRAN) tablet by mouth daily. LORATADINE-PSEUDOE Take 1 tablet 0 Active PHEDRINE ORAL by mouth daily as needed (for allergies). losartan-hydrochlo Take 1 tablet 90 tablet 3 Active rothiazide by mouth daily. 9 (HYZAAR) 100-25 mg per tablet PROAIR HFA 90 INL 2 PFS PO 2 Active mcg/actuation QID PRN 9 inhaler doxepin (SINEquan) doxepin 50 mg 0 05/05/19 Discontinued 50 MG capsule capsule 19 (Med List Cleanup) DULoxetine duloxetine 60 0 05/05/19 Discontinued (CYMBALTA) 60 MG mg 19 (Med List capsule capsule,delayed Cleanup) release fluticasone Inhale as 0 05/05/19 Discontinued (FLONASE) 50 needed by nasal 19 (Med List mcg/actuation route for 30 Cleanup) nasal spray days. clopidogrel clopidogrel 75 0 05/05/19 Discontinued (PLAVIX) 75 mg mg tablet 19 (Med List tablet Cleanup) magnesium oxide Take 1 tablet 0 05/05/19 Discontinued 400 mg capsule by mouth daily. 19 (Med List Cleanup) MULTIVITAMIN ORAL Take by mouth. 0 05/05/19 Discontinued Take daily as 19 (Med List directed Cleanup) ibuprofen Take 200 mg by 0 05/08/19 Discontinued (ADVIL,MOTRIN) 200 mouth every 6 19 (Stop Taking at MG tablet (six) hours as Discharge) needed for mild pain. CETIRIZINE Take by mouth. 0 05/05/19 Discontinued HCL/PSEUDOEPHEDRIN Take daily 19 (Med List E (ZYRTEC-D ORAL) Cleanup) losartan-hydrochlo Take 1 tablet 0 01/06/20 Discontinued rothiazide by mouth daily. 18 (HYZAAR) 100-25 mg per tablet amLODIPine Take 1 tablet 30 tablet 11 01/06/20 Discontinued (NORVASC) 10 mg (10 mg total) 7 18 tabletIndications: by mouth daily. Coronary artery disease involving prairie band coronary artery of prairie band heart without angina pectoris, Essential hypertension, Other specified transient cerebral ischemias furosemide (LASIX) Take 1 tablet 90 tablet 3 02/14/20 40 mg (40 mg total) 7 18 tabletIndications: by mouth daily. SOB (shortness of breath) potassium chloride Take 1 tablet 180 tablet 2 01/06/20 Discontinued (K-DUR) 20 MEQ CR (20 mEq total) 8 18 tablet by mouth 2 (two) times a day. spironolactone Take 100 mg by 0 04/20/19 Discontinued (ALDACTONE) 100 MG mouth daily. 19 (Dose tablet adjustment) carvedilol (COREG) Take 1 tablet 60 tablet 11 01/06/20 Discontinued 6.25 MG tablet (6.25 mg total) 8 18 (Dose by mouth 2 adjustment) (two) times a day. multivit with Take by mouth. 0 05/05/19 Discontinued iron,minerals 19 (Med List (CALCET PLUS ORAL) Cleanup) COZAAR 25 mg 0 04/20/19 Discontinued tablet 8 19 (Formulary change) carvedilol (COREG) Take 1 tablet 180 tablet 3 05/04/19 Discontinued 12.5 MG tablet (12.5 mg total) 8 19 (Formulary by mouth 2 change) (two) times a day. traMADol-acetamino TK 1 T PO BID 2 05/05/19 Discontinued phen (ULTRACET) PRN 8 19 (Med List 37.5-325 mg per Cleanup) tablet losartan-hydrochlo Take 1 tablet 0 05/10/19 Discontinued rothiazide by mouth daily. 19 (Reorder) (HYZAAR) 100-25 mg per tablet carvedilol (COREG) 0 05/04/19 Discontinued 3.125 MG tablet 9 19 loratadine-pseudoe Take 1 tablet 0 05/05/19 Discontinued pHEDrine by mouth daily 19 (CLARITIN-D as needed for 24-hour) 10-240 mg allergies. per 24 hr tablet furosemide (LASIX) Take 40 mg by 0 05/08/19 Discontinued 40 mg tablet mouth daily. 19 (Stop Taking at Discharge) furosemide (LASIX) Take 1 tablet 60 tablet 0 06/08/19 40 mg tablet (40 mg total) 9 19 by mouth 2 (two) times a day for 30 days. Active Problems Problem Noted Date Biventricular cardiac pacemaker in situ 05/20/2018 Overview: PM incision site is dry and healing well. 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 01/04/2016 Coronary arteriosclerosis in prairie band artery 01/04/2016 Occluded coronary artery stent 01/04/2016 Essential hypertension 01/04/2016 Hyperlipidemia 01/04/2016 Peripheral vascular disease 01/04/2016 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 Encounters Date Type Specialty Care Team Description 06/08/2018 Office Visit Cardiology Daryl Bradycardia (Primary Ivanna Gardner) 06/08/2018 Orders Only Cardiology Hugo Brito MD 05/20/2018 Office Visit Cardiology Laureano Wilson (Primary Dx); Zee Mcbride NP Essential hypertension; S/P TAVR (transcatheter aortic valve replacement); Biventricular cardiac pacemaker in situ 05/10/2018 Refill Cardiology Evens Hernandez Refill Elvia Tim, FORTINO 05/08/2018 Patient Outreach Quality Stephanie Kingston, FORTINO 05/06/2018 Surgery Procedural Schurmann, Pacemaker insertion Cardiology Hugo Anna, new or replacement MD Sandhu V [[id number] (CPT)] 05/05/2018 - Hospital Encounter General Internal Aide Lindquist, Bradycardia (Primary 05/08/2018 Medicine Dx) Dontae Rebollar DO 05/04/2018 Office Visit Cardiology Rene Vilchis SOB (shortness of breath) ( Primary Dx); MD Dena Aortic valve disorder; S/P TAVR (transcatheter aortic valve replacement); Dizzy; Bradycardia 04/20/2018 Office Visit Cardiology Rene Vilchis Dizzy (Primary Dx); MD Dena SOB (shortness of breath); Coronary artery disease involving prairie band coronary artery of prairie band heart without angina pectoris; History of coronary artery bypass graft; S/P TAVR (transcatheter aortic valve replacement) 01/05/2018 Office Visit Cardiology Rene Vilchis History of coronary artery bypass graft (Primary Dx); MD Dena S/P TAVR (transcatheter aortic valve replacement) after 12/11/2017 Family History Medical History Relation Name Comments [...] Vital Signs Vital Sign Reading Time Taken Comments Blood Pressure 117/56 06/08/2018 8:54 AM CDT Pulse 93 06/08/2018 8:54 AM CDT Temperature 37 C (98.6 F) 05/08/2018 11:53 AM [facility] Respiratory Rate 14 06/08/2018 8:54 AM CDT Oxygen Saturation 96% 05/08/2018 11:53 AM [facility] Inhaled Oxygen Concentration - - Weight 104 kg (230 lb) 06/08/2018 8:54 AM CDT Height 160 cm (5' 3") 06/08/2018 8:54 AM CDT Body Mass Index 40.74 06/08/2018 8:54 AM CDT Plan of Treatment Health Maintenance Due Date Last Done Comments SHINGLES VACCINES (#1) 01/01/1990 65+ PNEUMOCOCCAL VACCINE (1 of 2 - PCV13) 01/01/2005 INFLUENZA VACCINE 10/28/2018 Implants Implanted Type Area Coal Chemist Device Shelf Model / Identifier Expiration Serial / Date Lot Ellen Peters Mp - [id number] - [id number] Cardiac Pacemaker N/A: 2019 [id number] / Implanted: Qty: 1 on 05/06/2018 by Hugo Brito MD at [facility] Generators N/A [id number] / [id number] Tendril Sts, Pacemaker Leads, Model 2088tc/58 - [id number] - [id number] Cardiac Pacing N/A: 12/28/20198TC/58 / Implanted: Qty: 1 on 05/06/2018 by Hugo Brito MD at [facility] Leads or N/A [id number] / Electrodes or [id number] Accessories Quartet, Lv Leads, Model 1458q-86 - [id number] - [id number] Cardiac Pacing N/ A: 01/27/2021 [id number] / Implanted: Qty: 1 on 05/06/2018 by Hugo Brito MD at [facility] Leads or N/A [id number] / Electrodes or [id number] Accessories Tendril Sts, Pacemaker Leads, Model 8tc/52 - [id number] - [id number] Cardiac Pacing N/A: 01/27/2021 [id number]/52 / Implanted: Qty: 1 on 05/06/2018 by Hugo Brito MD at [facility] Leads or N/A [id number] / Electrodes or [id number] Accessories Envelope Pcemkr Antbactl Fully Resorb Aigisrxr - [id number] Cardiovascular N/A: [employer] [id number] / Implanted: 05/06/2018 at [facility] (Quantity not on file) Implants N/A / Procedures Procedure Name Priority Date/Time Associated Comments Diagnosis CV PACEMAKER DEFIB ILR Routine 09/02/2018 INTERROGATION ECG 12-LEAD Routine 06/08/2018 8:54 Bradycardia Results for this AM CDT procedure are in the results section. CV PACEMAKER DEFIB ILR Routine 06/08/2018 INTERROGATION ECG 12-LEAD Routine 05/20/2018 9:34 Bradycardia Results for this AM [facility] procedure are in the results section. CV PACEMAKER DEFIB ILR Routine 05/20/2018 INTERROGATION POC GLUCOSE Routine 05/08/2018 11:49 Results for this AM [facility] procedure are in the results section. POC GLUCOSE Routine 05/08/2018 7:29 Results for this AM [facility] procedure are in the results section. ESTIMATED GFR Routine 05/08/2018 4:10 Results for this AM [facility] procedure are in the results section. COMPREHENSIVE METABOLIC Routine 05/08/2018 4:10 Results for this PANEL AM [facility] procedure are in the results section. CBC WITH PLATELET AND Routine 05/08/2018 4:10 Results for this DIFFERENTIAL AM [facility] procedure are in the results section. MAGNESIUM LEVEL Routine 05/08/2018 4:10 Results for this AM [facility] procedure are in the results section. POC GLUCOSE Routine 05/07/2018 8:54 Results for this PM [facility] procedure are in the results section. POC GLUCOSE Routine 05/07/2018 5:17 Results for this PM [facility] procedure are in the results section. POC GLUCOSE Routine 05/07/2018 10:28 Results for this AM [facility] procedure are in the results section. POC GLUCOSE Routine 05/07/2018 7:50 Results for this AM [facility] procedure are in the results section. POC GLUCOSE Routine 05/07/2018 5:55 Results for this AM [facility] procedure are in the results section. ESTIMATED GFR Routine 05/07/2018 3:42 Results for this AM [facility] procedure are in the results section. PROTHROMBIN TIME WITH Routine 05/07/2018 3:42 Results for this INR AM [facility] procedure are in the results section. COMPREHENSIVE METABOLIC Routine 05/07/2018 3:42 Results for this PANEL AM [facility] procedure are in the results section. CBC WITH PLATELET AND Routine 05/07/2018 3:42 Results for this DIFFERENTIAL AM [facility] procedure are in the results section. MAGNESIUM LEVEL Routine 05/07/2018 3:42 Results for this AM [facility] procedure are in the results section. ECG PRE/POST OP Routine 05/07/2018 12:58 Results for this AM [facility] procedure are in the results section. XR CHEST 1 VW PORTABLE STAT 05/06/2018 9:09 Results for this PM [facility] procedure are in the results section. POC GLUCOSE Routine 05/06/2018 8:46 Results for this PM [facility] procedure are in the results section. ECG PRE/POST OP STAT 05/06/2018 7:47 Results for this PM [facility] procedure are in the results section. EP PACEMAKER INSERTION Routine 05/06/2018 6:55 Results for this NEW OR REPLACEMENT PM [facility] procedure are in the results section. ESTIMATED GFR STAT 05/06/2018 11:44 Results for this AM [facility] procedure are in the results section. BASIC METABOLIC PANEL STAT 05/06/2018 11:44 Results for this AM [facility] procedure are in the results section. POC GLUCOSE Routine 05/06/2018 11:24 Results for this AM [facility] procedure are in the results section. POC GLUCOSE Routine 05/06/2018 7:53 Results for this AM [facility] procedure are in the results section. XR CHEST 1 VW PORTABLE Routine 05/06/2018 5:20 Results for this AM [facility] procedure are in the results section. TYPE AND SCREEN Routine 05/06/2018 3:50 Results for this AM [facility] procedure are in the results section. ESTIMATED GFR Routine 05/06/2018 2:48 Results for this AM [facility] procedure are in the results section. COMPREHENSIVE METABOLIC Routine 05/06/2018 2:48 Results for this PANEL AM [facility] procedure are in the results section. HC COMPLETE BLD COUNT Routine 05/06/2018 2:48 Results for this W/AUTO DIFF AM [facility] procedure are in the results section. MAGNESIUM LEVEL Routine 05/06/2018 2:48 Results for this AM [facility] procedure are in the results section. LIPID PANEL Routine 05/06/2018 2:48 Results for this AM [facility] procedure are in the results section. HEMOGLOBIN A1C Routine 05/06/2018 2:48 Results for this AM [facility] procedure are in the results section. POC GLUCOSE Routine 05/05/2018 9:11 Results for this PM [facility] procedure are in the results section. ECG 12-LEAD Routine 05/05/2018 9:04 Results for this PM [facility] procedure are in the results section. TROPONIN STAT 05/05/2018 6:02 Results for this PM [facility] procedure are in the results section. MAGNESIUM LEVEL STAT 05/05/2018 6:02 Results for this PM [facility] procedure are in the results section. ESTIMATED GFR STAT 05/05/2018 6:02 Results for this PM [facility] procedure are in the results section. BASIC METABOLIC PANEL STAT 05/05/2018 6:02 Results for this PM [facility] procedure are in the results section. HC COMPLETE BLD COUNT STAT 05/05/2018 6:00 Results for this W/AUTO DIFF PM [facility] procedure are in the results section. POC GLUCOSE Routine 05/05/2018 5:25 Results for this PM [facility] procedure are in the results section. T4, FREE Routine 05/05/2018 2:26 Results for this PM [facility] procedure are in the results section. THYROID STIMULATING Routine 05/05/2018 2:26 Results for this HORMONE PM [facility] procedure are in the results section. TROPONIN Timed 05/05/2018 2:26 Results for this PM [facility] procedure are in the results section. XR CHEST 1 VW PORTABLE STAT 05/05/2018 12:36 Results for this PM [facility] procedure are in the results section. THYROID STIMULATING STAT 05/05/2018 12:10 Results for this HORMONE PM [facility] procedure are in the results section. ESTIMATED GFR STAT 05/05/2018 12:10 Results for this PM [facility] procedure are in the results section. PARTIAL THROMBOPLASTIN STAT 05/05/2018 12:10 Results for this TIME (PTT) PM [facility] procedure are in the results section. B NATRIURETIC PEPTIDE STAT 05/05/2018 12:10 Results for this PM [facility] procedure are in the results section. TROPONIN STAT 05/05/2018 12:10 Results for this PM [facility] procedure are in the results section. COMPREHENSIVE METABOLIC STAT 05/05/2018 12:10 Results for this PANEL PM [facility] procedure are in the results section. HC COMPLETE BLD COUNT STAT 05/05/2018 12:10 Results for this W/AUTO DIFF PM [facility] procedure are in the results section. KS CRITICAL CARE, E/M Routine 05/05/2018 12:08 Results for this 30-74 MINUTES PM [facility] procedure are in the results section. ECG 12-LEAD STAT 05/05/2018 11:46 Results for this AM [facility] procedure are in the results section. ECHOCARDIOGRAM 2D Routine 04/28/2018 4:51 Dizzy Results for this COMPLETE W MMODE PM [facility] SOB (shortness of procedure are in SPECTRAL COLOR DOPPLER breath) the results (44968) section. US CAROTID DUPLEX Routine 04/20/2018 2:00 Dizzy Results for this BILATERAL PM [facility] SOB (shortness of procedure are in breath) the results Coronary artery section. disease involving prairie band coronary artery of prairie band heart without angina pectoris ECG 12-LEAD Routine 04/20/2018 11:22 Dizzy Results for this AM [facility] SOB (shortness of procedure are in breath) the results section. after 12/11/2017 Results CV pacemaker defib or ilr interrogation (09/02/2018) Narrative Performed At ECG 12 lead (06/08/2018 8:54 AM CDT)Only the most recent of5 resultswithin the time period is included. Ventricular rate 82 [facility] Atrial rate 82 [facility] KS interval 136 [facility] QRSD interval 168 [facility] QT interval 438 [facility] QTC interval 511 [facility] P axis 1 73 [facility] QRS axis 1 261 [facility] T wave axis 39 [facility] EKG impression Electronic ventricular [facility] pacemaker-In automated comparison with ECG of 20-MAY-2018 09:34,-Vent. rate has increased BY 7 BPM- Specimen Narrative Performed At Performing Organization Address City/[facility]/Zipcode Phone Number [facility] MUSE [address] [place] [address] CV pacemaker defib or ilr interrogation (06/08/2018) Narrative Performed At CV pacemaker defib or ilr interrogation (05/20/2018) Narrative Performed At POC glucose (05/08/2018 11:49 AM [facility])Only the most recent of12 resultswithin the time period is included. POC glucose 176 (H) 65 - 99 mg/dL [facility] Comment: [facility] Notified RN Meter ID: [id number] Bilingual Receptionist: Aldo Douglas Specimen Performing Organization Address City/[facility] Phone Number [facility] DEPARTMENT OF PATHOLOGY AND [address] [place] [address] Estimated GFR (05/08/2018 4:10 AM [facility])Only the most recent of6 resultswithin the time period is included. Pathologist [facility] Estimated GFR 57 (A) mL/min/1.73 [facility] Comment: [address] CatergoryUnitsInterpretation G1 >=90 Normal or high G2 60-89Mildly decreased K2m42-13Gbzazp to moderately decreased W2l77-53Hhlripunvj to severely decreased G4 15-29Severely decreased G5 <15Kidney failure The eGFR was calculated using the Chronic Kidney Disease Epidemiology Collaboration (CKD-EPI) equation. Interpretation is based on recommendations of the National Kidney Foundation-Kidney Disease Outcomes Quality Initiative (NKF-KDOQI) published in 2014. Specimen Plasma specimen Performing Organization Address City/[facility]/Zipcode Phone Number [facility] DEPARTMENT OF PATHOLOGY AND [address] [place] [address] CBC with platelet and differential (05/08/2018 4:10 AM [facility])Only the most recent of5 resultswithin the time period is included. WBC 10.37 4.50 - 11.00 [facility] k/uL HOSPITAL RBC 3.97 (L) 4.20 - 5.50 [facility] m/uL HOSPITAL HGB 12.3 12.0 - 16.0 [facility] g/dL [facility] HCT 39.6 37.0 - 47.0 % [facility] MCV 99.7 82.0 - 100.0 [facility] MCH 31.0 27.0 - 34.0 pg [facility] MCHC 31.1 31.0 - 37.0 [facility] g/dL [facility] RDW - SD 53.6 37.0 - 55.0 fL [facility] MPV 10.9 8.8 - 13.2 fL [facility] Platelet count 276 150 - 400 k/uL [facility] Nucleated RBC 0.00 /100 WBC [facility] Neutrophils 59.5 39.0 - 69.0 % [facility] Lymphocytes 22.7 (L) 25.0 - 45.0 % [facility] Monocytes 9.3 0.0 - 10.0 % [facility] Eosinophils 7.3 (H) 0.0 - 5.0 % [facility] Basophils 0.9 0.0 - 1.0 % [facility] Immature granulocytes 0.3Comment: 0.0 - 1.0 % [facility] "Immature [facility] granulocytes" (promyelocytes , myelocytes, metamyelocytes ) Specimen Blood Performing Organization Address City/[facility] Phone Number [facility] DEPARTMENT OF PATHOLOGY AND [address] [place] [phone] Magnesium level (05/08/2018 4:10 AM [facility])Only the most recent of4 resultswithin the time period is included. Magnesium 2.1 1.6 - 2.4 mg/dL [facility] Specimen Plasma specimen Performing Organization Address City/[facility] Facility[facility] Phone Number [facility] DEPARTMENT OF PATHOLOGY AND [address] [place] [address] Comprehensive metabolic panel (05/08/2018 4:10 AM [facility])Only the most recent of4 resultswithin the time period is included. Sodium 135 135 - 148 [facility] mEq/L [facility] Potassium 4.0 3.5 - 5.0 [facility] mEq/L [facility] Chloride 96 (L) 98 - 112 mEq/L [facility] CO2 27 24 - 31 mEq/L [facility] Anion gap 12@ANIO 7 - 15 mEq/L [facility] BUN 23 8 - 23 mg/dL [facility] Creatinine 0.96 (H) 0.50 - 0.90 [facility] mg/dL [facility] Glucose 162 (H) 65 - 99 mg/dL [facility] Calcium 9.5 8.8 - 10.2 [facility] mg/dL [facility] Protein 7.2 6.3 - 8.3 g/dL [facility] Comment: [facility]PITAL [place] 4.6-7.0 g/dL 1 week 4.4-7.6 g/dL 7 months-1year5.1-7.3 g/dL 1-2 years5.6-7.5 g/dL >3 years6.0-8.0 g/dL 18-150 6.3-8.3 g/dL Albumin 3.8 3.5 - 5.0 g/dL [facility] A/G ratio 1.1 0.7 - 3.8 [facility] Alkaline phosphatase 85 35 - 104 U/L [facility] AST 18 10 - 35 U/L [facility] ALT 11 5 - 50 U/L [facility] Total bilirubin 0.7 0.0 - 1.2 [facility] mg/dL [facility] Specimen Plasma specimen Performing Organization Address City/State/Zipcode Phone Number [facility] DEPARTMENT OF PATHOLOGY AND [address] [place] [address] GENOMIC MEDICINE [address] [address] Prothrombin time with INR (05/07/2018 3:42 AM [facility]) Prothrombin time 14.3 11.5 - 14.5 [facility] INR 1.1 [place] Comment: EPISCOPALIAN The International Normalized Ratio (INR) is a therapeutic HOSPITAL monitoring tool for patients who are stable on oral anticoagulant therapy. An INR of 2.0-3.0 is suggested for deep vein thrombosis/pulmonary embolism. Specimen Blood Performing Organization Address City/[facility]/Zipcode Phone Number [facility] DEPARTMENT OF PATHOLOGY AND [address] [place] [address] GENOMIC MEDICINE [facility] [address] [place] [address] ECG Pre/Post Op-Tomorrow (05/07/2018 12:58 AM [facility])Only the most recent of2 resultswithin the time period is included. Ventricular rate 68 [facility] Atrial rate 68 [facility] [place] interval 156 [facility] QRSD interval 178 [facility] QT interval 508 [facility] QTC interval 540 [facility] P axis 1 38 [facility] QRS axis 1 -51 [facility] T wave axis 25 [facility] MUSE EKG impression Atrial-sensed [facility] MUSE ventricular-paced rhythm-Abnormal ECG-In automated comparison with ECG of 07-MAY-2018 00:57,-No significant change was found- Specimen Narrative Performed At Performing Organization Address City/State/Zipcode Phone Number [facility] [address] [place] [address] XR Chest 1 Vw Portable (05/06/2018 9:09 PM HANGERSMITH)Only the most recent of3 resultswithin the time [...] There are no focal consolidations or effusions. [facility]-[id number] Procedure Note Interface, Radiology Results Incoming - 05/06/2018 9:17 PM HANGERSMITH EXAMINATION: XR CHEST 1 VW PORTABLE CLINICAL [...] There are no focal consolidations or effusions. [facility]-[id number] Performing Organization Address City/State/Zipcode Phone Number FERNANDO HAIRSTON [address] [place] [address] Cv electrophysiology procedure (05/06/2018 6:55 PM HANGERSMITH) Specimen Narrative Performed At ELECTROPHYSIOLOGY SERVICE OPERATIVE REPORT [facility] PREPROCEDURE DIAGNOSES: 1. High degree AV block [...] coronary sinus was now cannulated with the Timely coronary sinus outer guide sheath over an [...] LOSS: 20 ml. IMPLANTED MATERIALS: PACEMAKER:SJM model [id number] serial [id number] RA LEAD:SJMmodel 2088TC/52 serial [id number] RV LEAD: SJMmodel 2088TC/58 serial [id number] LV LEAD:SJMmodel 1458Q/86 serial [id number] MEASURED DATA: RA LEAD:P-waves: 3 mV, threshold [...] enrolled in remote monitoring. Performing Organization Address [facility] Phone Number [facility] [address] [place] [address] Basic metabolic panel (05/06/2018 11:44 AM HANGERSMITH)Only the most recent of2 resultswithin the time period is included. Sodium 134 (L) 135 - 148 mEq/L [facility] Potassium 4.3 3.5 - 5.0 mEq/L [facility] Chloride 97 (L) 98 - 112 mEq/L [facility] CO2 27 24 - 31 mEq/L [facility] Anion gap 10@ANIO 7 - 15 mEq/L [facility] BUN 18 8 - 23 mg/dL [facility] Creatinine 0.86 0.50 - 0.90 mg/dL [facility] Glucose 148 (H) 65 - 99 mg/dL [facility] Calcium 9.1 8.8 - 10.2 mg/dL [facility] Specimen Plasma specimen Performing Organization Address [facility] Phone Number [facility] DEPARTMENT OF PATHOLOGY AND [address] [place] [phone] [address] Type and screen (05/06/2018 3:50 AM HANGERSMITH) ABO grouping A [facility] Rh type POS [facility] Antibody screen (gel) NEG [facility] Specimen Blood Performing Organization Address [facility] Phone Number [facility] DEPARTMENT OF PATHOLOGY AND [address] [place] [address] [facility] [address] [address] Hemoglobin A1c (05/06/2018 2:48 AM HANGERSMITH) Hemoglobin A1C 6.3 (H) 4.0 - 5.6 % [facility] Comment: HOSPITAL HbA1c cutoffs for diagnosing diabetes: 4.0% - 5.6%=normal 5.7% - 6.4%=increased risk for diabetes (prediabetes) >=6.5%=diabetes Goals for glycemic control (ADA 2016) < 7.0%Target for non adults with diabetes. More or less stringent targets may be appropriate for individual patients. <7.5% Target for Children and adolescents with type 1 diabetes. Specimen Blood Performing Organization Address City/State/Zipcode Phone Number [facility] DEPARTMENT OF PATHOLOGY AND [address] [place] [address] [facility] [place] [id number] [place] [address] Lipid panel (05/06/2018 2:48 AM HANGERSMITH) Cholesterol 107 <200 mg/dL [facility] Triglycerides 140 <150 mg/dL [facility] HDL cholesterol 33 (L) >40 mg/dL [facility] LDL cholesterol 57Comment: Result <100 mg/dL [place] obtained by direct EPISCOPALIAN LDL measurement [facility] Lipid panel SeeBelow [place] interpretation Comment: EPISCOPALIAN Total Cholesterol (mg/dL) [facility] <200 Desirable 606-151Owufwprddp-lrcl >=240High Triglycerides (mg/dL) <150 Normal [id number]-zcek 200-499High >=500Very high HDL Cholesterol (mg/dL) <40Low (male) <40Low (female) LDL Cholesterol (mg/dL) <100 Optimal 100-129Near or above optimal [phone]-rviz 160-189High >=190Very high Risk Catergories that modify [...] mg/dL) Specimen Plasma specimen Performing Organization Address City/[facility] Phone Number [facility] DEPARTMENT OF PATHOLOGY AND [address] [place] [phone] Troponin (05/05/2018 6:02 PM HANGERSMITH)Only the most recent of3 resultswithin the time period is included. Troponin <0.30 0.00 - 0.30 [facility] Comment: ng/mL HOSPITAL 0.30 - 1.49 ng/mlMay indicate increased risk of acute coronary syndrome. >=1.5 ng/mlConsistent with acute myocardial infarction. The diagnostic value of a single normal or non-diagnostic result is questionable.Serial samples at 2-6 hour intervals are required to rule out acute myocardial injury. Specimen Plasma specimen Performing Organization Address [facility] Phone Number [facility] DEPARTMENT OF PATHOLOGY AND [address] [place] [address] Thyroid stimulating hormone (05/05/2018 2:26 PM HANGERSMITH)Only the most recent of2 resultswithin the time period is included. [facility] Signature TSH 2.11 0.27 - 4.20 uIU/mL [facility] Specimen Plasma specimen Performing Organization Address [facility] Phone Number [facility] DEPARTMENT OF PATHOLOGY AND [address] [place] [address] T4, free (05/05/2018 2:26 PM HANGERSMITH) Pathologist [facility] T4, free 0.9 0.9 - 1.7 ng/dL [facility] Specimen Plasma specimen Performing Organization Address [facility] Phone Number [facility] DEPARTMENT OF PATHOLOGY AND [address] [place] [address] Partial thromboplastin time, activated (05/05/2018 12:10 PM HANGERSMITH) PTT 35.9 23.0 - 36.0 [facility] Comment: [facility] PTT therapeutic range for unfractionated heparin is 61.0-112.0 seconds which corresponds to Anti-Xa 0.3-0.7 U/ml. Specimen Blood Narrative Performed At nurse foster did add [facility] DEPARTMENT OF PATHOLOGY AND GENOMIC on05/05/201812:45 MEDICINE Performing Organization Address City/[facility]/Zipcode Phone Number [facility] DEPARTMENT OF PATHOLOGY AND [address] [place] [address] [address] B natriuretic peptide (05/05/2018 12:10 PM HANGERSMITH) BNP 642 (H) 0 - 100 pg/mL [facility] Specimen Blood Narrative Performed At nurse foster did add [facility] DEPARTMENT OF PATHOLOGY AND GENOMIC on05/05/201812:45 MEDICINE Performing Organization Address City/[facility]/Zipcode Phone Number [facility] DEPARTMENT OF PATHOLOGY AND [address] [place] [phone] [address] CRITICAL CARE (05/05/2018 12:08 PM HANGERSMITH) Narrative Performed At Aide Lindquist MD 05/05/20189:29 [...] and 3D if needed (04/28/2018 4:51 PM HANGERSMITH) Specimen Narrative Performed At [facility] Echocardiography Report Pat.Name:YAHAIRA SUTHERLAND LPat.ID:[id number] .Date: 04/28/2018 Refer.MD:RENE VILCHIS MD Exam Time: 1:19:00 PMStudy Type:Routine Echo Height:63inWeight: 229lb BSA: 2.05 m2 DOBAge:1940,78Y Sex: FEMALEBP:121/58 HR:59 bpm Sonogrphr: KEEGAN Horowitz FASE Pat. Stat.:OutpatientRoom:[facility] Study Status:Final Echo Event ID:[id number] Order ID:[id number] Reason for Study:SOB, suspected cardiac etiology History [...] PA systolic pressure. MEASUREMENTS: 2D Parasternal Long [place] LVIDd3.9 cmIndex1.9 cm/m LV Akyh934.8 g(87-129) IVSd 0.9 cmLVM Index 59.4 g/m2 LVPWd1.1 cmRWT0.6 Ao Rtd 3.3 cmIndex1.6 cm/m LA Sng Plane LA Area 34.1 cm2(8.8-23.4) LA Vol 132.1 ml Index64.5 ml/m LA LngAx 7.2 cm DOPPLER AV For Flow/KUMAR AV pkVel 212.2 cm/s (100-170) AV AC/ET 0.3 AV mnVel 140.6 cm/[place] TVI44.9 cm AV pkPG 18 mmHgAVpkAcRt 2740.7 cm/s2 AV Mean G9.6 mmHgAV AkTa666.5 cm/s2 AV AC103 msec (83-118) AV Area2 cm2(3-5) AV ET320 msec LVOT For Flow LVOT Area2.2 cm2 LVOT SV 88.1 ml NMSHmxIkz822.7 cm/sHR56.9 bpm LECTsaEX65.6 mmHgLVOT CO5 l/min LVOTmnPG 7.2 mmHgLVOT CI2.4 l/m/m2 LVOT TVI39.6 cm MV For Flow/Valve Assess MV pkVel 185 cm/sMV Dec T 540 msec MV pkPG 13.7 mmHgMV TVI77.1 cm MV Mean G6.6 mmHgMV Area P1/2t1.4 cm2(4-6) Signed 04/29/2018 04:50 PM Denzel Kaplan M.D. Procedure Note Interface, Radiology Results In - 04/29/2018 4:51 PM HANGERSMITH [facility] Echocardiography Report Pat.Name: YAHAIRA SUTHERLAND Pat.ID: [id number] .Date: 04/28/2018 Refer.MD: RENE VILCHIS MD Exam Time: 1:19:00 PM Study Type:Routine Echo Height: 63in Weight: 229lb BSA: 2.05 m2 Age: 10 1940,78Y Sex: FEMALE BP: 121/58 HR: 59 bpm Sonogrphr: KEEGAN Horowitz FASE Pat. Stat.:Outpatient Room: [facility] Study Status:Final Echo Event ID:[id number] Order ID: [id number] Reason for Study:SOB, suspected cardiac etiology History [...] PA systolic pressure. MEASUREMENTS: 2D Parasternal Long [place] LVIDd 3.9 cm Index 1.9 cm/m LV [...] PM Denzel Kaplan M.D. Performing Organization Address City/[facility]/Zipcode Phone Number [facility] [address] carotid duplex (04/20/2018 2:00 PM HANGERSMITH) Specimen Narrative Performed At [facility] Carotid Artery Ultrasound Report Pat.Name:YAHAIRA SUTHERLAND LPat.ID:[id number] .Date: 04/20/2018 Refer.MD:RENE VILCHIS MD Exam Time: 1:16:00 PMStudy Type:Carotid Height:63inDOBAge: 1940,78Y Sex: FEMALESonogrphr: Shelley Galvez RVT Pat. Stat.:OutpatientRoom:[facility] TapeVol: SD, CPT - 4: 00529 Echo Event ID:[id number] Order ID:[id number] Reason for Study:Bilateral carotid disease and stenosis, [...] Antegrade flow in both vertebral arteries. Carotid Findings:RightLeft Verteb.Flw AntegradeAntegrade Subclavian Biphasic Triphasic MEASUREMENTS: DOPPLER Right CCA Dist CCA Dist PSV61.9 cm/sCCA Dist EDV7.74 cm/s Right CCA Mid CCA Mid GAW389 cm/sCCA Mid EDV 11.1 cm/s Right CCA [...] 8.32 cm/s Left CCA Mid CCA Mid JWQ520 cm/sCCA Mid EDV 12.7 cm/s Left CCA Prox CCA Prox PSV97 cm/sCCA Prox EDV10.5 cm/s Left ECA ECA ACI897 cm/sECA EDV 16.3 cm/s Left ICA Mid ICA Mid FJS936 cm/Sherley Mid EDV 25.4 cm/s ICA Prox [...] Radiology Results In - 04/22/2018 8:24 PM HANGERSMITH [facility] Carotid Artery Ultrasound Report Pat.Name: YAHAIRA SUTHERLAND.ID: [id number] St.Date: 04/20/2018 Refer.MD: RENE VILCHIS MD Exam Time: 1:16:00 PM Study Type:Carotid Height: 63in Age: 10 1940,78Y Sex: FEMALE Sonogrphr: Shelley Galvez RVT Pat. Stat.:Outpatient Room: [facility] Vol: SD, CPT - 4: 61477 Echo Event ID:[id number] Order ID: [id number] Reason for Study:Bilateral carotid disease and stenosis, [...] PM Rene Vilchis MD Performing Organization Address City/State/Zipcosc Phone Number [facility] [address] [place] [address] after 12/11/2017 Insurance Payer Benefit Plan / Subscriber ID Effective Dates Phone Address Type Group MEDICARE MEDICARE PART A xxxxxxxxxxx 2004-Present [place] Medicare AND B BCBS BCBS PAR/TRAD xxxxxxxxxxxx 2016-Present Indemnity PLAN Advance Directives For more information, please contact: [phone] Type Date 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
[2018-12-12] MEDS ORDERED: MORPHINE 4 MG/ML SYR ONE ×2 (14:17→20:11)
[2018-12-12] MEDS ORDERED: ONDANSETRON 4 MG/2 ML VIAL ONE (14:17)
[2018-12-12 15:17] LABS: Absolute Lymphocytes (CBC) 0.4 K/uL (0.7-4.9); Basophils % 0.2 % (0-1.3); Hematocrit 34.7 % (36.0-45.0); Lymphocytes % 3.9 % (15.3-44.8); MPV 9.1 fL (7.6-11.3); RBC Red Blood Cell Count 3.79 M/uL (3.86-4.86)
--- NOTE | 2018-12-12 15:25 | RAD REPORT ---
EXAM DESCRIPTION: RAD - Pelvis - 12/12/2018 2:43 pm CLINICAL HISTORY: fall Fall, left hip pain COMPARISON: No relevant comparison FINDINGS: AP pelvis and left hip -multiple projections Moderately displaced intertrochanteric fracture of the proximal left femur is present. No dislocation is evident.
[2018-12-12 15:36] LABS: Albumin 3.6 g/dL (3.4-5.0); Bilirubin Total 0.8 mg/dL (0.2-1.0); Potassium 4.2 mmol/L (3.5-5.1); Protein, Total 6.9 g/dL (6.4-8.2)
[2018-12-12 15:41] LABS: Urine Bacteria >50 /HPF (<20); Urine RBC <5 /HPF (NONE SEEN)
[2018-12-12 15:42] LABS: Urine Culture Reflex Order NOT NEEDED
[2018-12-12] MEDS ORDERED: NA CHLORIDE 0.9% 1,000 ML ONE ×2 (15:46→18:55)
--- NOTE | 2018-12-12 15:50 | EDPHYS ---
Physician Documentation [facility] Name: Yahaira Serna Age: 78 yrs Sex: Female : 1940 Arrival Date: 12/12/2018 Time: 13:48 Bed 15 Private MD: ED Physician Sarkis Cee HPI: 12/12 13:55 This 78 yrs old Female presents to ER via EMS with complaints of Fall Injury, jmm Hip Injury. 13:55 Details of fall: The patient fell from an upright position. Onset: The symptoms/episode jmm began/occurred acutely, just prior to arrival. Associated injuries: The patient sustained left leg. The patient has not experienced similar symptoms in the past. This is a 78 year old female with a history of CAD, COPD, CVA, DM that presents to the ED with complaints of left hip pain after a fall which occurred just prior to arrival. patient denies other injury. . Historical: - Allergies: 14:24 Cefzil; jl7 14:24 Ciprofloxacin; jl7 14:24 Keflex; jl7 14:24 Quinilones; jl7 - Home Meds: 14:24 Plavix 75 mg Oral tab 1 tab once daily [Active]; jl7 17:40 Hyzaar 100-25 mg Oral tab 1 tab once daily [Active]; aspirin 81 mg Oral chew 1 tab once jl7 daily [Active]; doxepin 50 mg Oral cap nightly [Active]; Cymbalta 60 mg Oral cpDR 1 cap once daily [Active]; Flonase 50 mcg/actuation Nasal spsn 2 sprays once daily [Active]; benzonatate 100 mg oral cap [Active]; tramadol 50 mg Oral tab [Active]; pravastatin 40 mg Oral tab 1 tab once daily [Active]; metformin 1,000 mg oral tab 1 tab 2 times per day [Active]; Crawford Thyroid 15 mg Oral tab daily [Active]; Coreg Oral [Active]; losartan 25 mg oral tab [Active]; Lasix 40 mg Oral tab 1 tab once daily [Active]; spironolactone 100 mg Oral tab 1 tab once daily [Active]; Neurontin 600 mg Oral tab 1 tab 3 times per day [Active]; - PMHx: 14:24 CAD; Chronic fatigue syndrome; COPD; CVA; Diabetes - NIDDM; dyspnea; Fibromyalgia; jl7 Hypercoagulation; Hypertension; Sleep Apnea; Pacemaker; 17:40 Depression; Anxiety; jl7 - PSHx: 14:24 Shoulder Surgery; Carotid Artery Stents; CABG; jl7 - Immunization history: Last tetanus immunization: unknown. - Social history:: Smoking status: Patient/guardian denies using tobacco. - Ebola Screening: : No symptoms or risks identified at this time. ROS: 13:55 Constitutional: Negative for fever, chills, and weight loss, Cardiovascular: Negative jmm for chest pain, palpitations, and edema, Respiratory: Negative for shortness of breath, cough, wheezing, and pleuritic chest pain. 13:55 MS/extremity: Positive for pain. 13:55 All other systems are negative. Exam: 13:55 Head/Face: atraumatic. Eyes: EOMI, no conjunctival erythema appreciated ENT: Moist jmm Mucus Membranes Neck: Trachea midline, Supple Chest/axilla: Normal chest wall appearance and motion. 13:55 Abdomen/GI: Non distended, soft Back: Normal ROM Skin: General appearance color normal MS/ Extremity: Moves all extremities, no obvious deformities appreciated, no edema noted to the lower extremities Neuro: Awake and alert, normal gait Psych: Behavior is normal, Mood is normal, Patient is cooperative and pleasant 13:55 Constitutional: The patient appears alert, awake, uncomfortable. 13:55 Cardiovascular: Rate: normal, Rhythm: regular. 13:55 Respiratory: the patient does not display signs of respiratory distress, Respirations: normal, Breath sounds: are clear throughout. Vital Signs: 13:48 BP 125 / 71; Pulse 82; Resp 16 S; Temp 100.6(O); Pulse Ox 92% on R/A; Pain 0/10; jl7 14:00 BP 123 / 66; Pulse 79; Resp 16; Pulse Ox 100% on R/A; jl7 15:00 BP 126 / 69; Pulse 80; Resp 16 S; Pulse Ox 100% on R/A; jl7 16:00 BP 119 / 70; Pulse 79; Resp 16 S; Temp 100.8; Pulse Ox 100% on R/A; jl7 17:45 BP 125 / 61; Pulse 80; Resp 16 S; Temp 99.3(O); Pulse Ox 100% on R/A; jl7 19:05 BP 107 / 92; Pulse 77; Resp 17 S; Pulse Ox 100% on R/A; jd3 [place] Coma Score: 13:48 Eye Response: spontaneous(4). Verbal Response: oriented(5). Motor Response: obeys jl7 commands(6). Total: 15. Trauma Score (Adult): 13:48 Eye Response: spontaneous(1); Verbal Response: oriented(1); Motor Response: obeys jl7 commands(2); Systolic BP: > 89 mm Hg(4); Respiratory Rate: 10 to 29 per min(4); Radha Score: 15; Trauma Score: 12 14:00 Eye Response: spontaneous(1); Verbal Response: oriented(1); Motor Response: obeys jl7 commands(2); Systolic BP: > 89 mm Hg(4); Respiratory Rate: 10 to 29 per min(4); Radha Score: 15; Trauma Score: 12 15:00 Eye Response: spontaneous(1); Verbal Response: oriented(1); Motor Response: obeys jl7 commands(2); Systolic BP: > 89 mm Hg(4); Respiratory Rate: 10 to 29 per min(4); [place] Score: 15; Trauma Score: 12 17:45 Eye Response: spontaneous(1); Verbal Response: oriented(1); Motor Response: obeys jl7 commands(2); Systolic BP: > 89 mm Hg(4); Respiratory Rate: 10 to 29 per min(4); Radha Score: 15; Trauma Score: 12 MDM: 13:55 Patient medically screened. [facility] 14:46 Data reviewed: vital signs, nurses notes, radiologic studies. ED course: I discussed [facility] the patient with Dr. Meyer whom will consult on admission. 12/12 14:45 Order name: CBC with Diff [facility] 12/12 14:45 Order name: CMP [facility] 12/12 15:07 Order name: Urine Microscopic Only [facility] 12/12 15:07 Order name: Urine Culture [facility] 12/12 15:19 Order name: Procalcitonin [facility] 12/12 15:19 Order name: Lactate [facility] 12/12 14:11 Order name: Pelvis XRAY eb 12/12 15:19 Order name: CBC with Automated Diff [facility] 12/12 15:38 Order name: Comprehensive Metabolic Panel; Complete Time: 15:45 EDMI 12/12 15:44 Order name: Urine Microscopic Only; Complete Time: 15:45 EDMS 12/12 16:15 Order name: Lactate; Complete Time: 16:28 EDMS 12/12 16:48 Order name: Procalcitonin; Complete Time: 16:50 EDMS 12/12 17:06 Order name: Urine Dipstick--Ancillary (enter results) hb 12/12 17:34 Order name: Urine Dipstick-Ancillary; Complete Time: 17:39 EDMS 12/12 14:11 Order name: Hip Left 2 View XRAY eb 12/12 14:25 Order name: IV Saline Lock; Complete Time: 14:25 jl7 12/12 15:27 Order name: RAD; Complete Time: 15:37 EDMS 12/12 17:26 Order name: Diet Heart Healthy; Complete Time: 17:26 hb Administered Medications: 14:25 Drug: morphine 4 mg Route: IVP; Site: right forearm; jl7 14:45 Follow up: Response: No adverse reaction; Pain is decreased jl7 14:26 Drug: Zofran 4 mg Route: IVP; Site: right forearm; jl7 17:42 Follow up: Response: No adverse reaction jl7 15:50 Drug: NS 0.9% 1000 ml Route: IV; Rate: 1 bolus; Site: right forearm; jl7 16:50 Follow up: IV Status: Completed infusion; IV Intake: 1000ml jl7 16:10 Drug: fentaNYL (PF) 25 mcg Route: IVP; Site: right forearm; jl7 16:30 Follow up: Response: No adverse reaction; Pain is decreased jl7 17:00 Drug: LevaQUIN 750 mg Volume: 150 ml; Route: IVPB; Infused Over: 90 mins; Site: right jl7 forearm; 18:30 Follow up: Response: No adverse reaction; IV Status: Completed infusion jl7 17:10 Drug: Tylenol 1000 mg Route: PO; jl7 17:55 Follow up: Response: No adverse reaction; Temperature is decreased jl7 17:55 Drug: fentaNYL (PF) 25 mcg Route: IVP; Site: right forearm; jl7 18:20 Follow up: Response: No adverse reaction; Pain is decreased jl7 18:56 Drug: NS 0.9% 1000 ml Route: IV; Rate: 1 bolus; Site: right forearm; jl7 19:44 Follow up: Response: No adverse reaction; IV Status: Infusion continued upon admission jd3 Disposition: 12/13 08:48 Co-signature as Attending Physician, Sarkis Cee MD I agree with the assessment and kdr plan of care. Disposition: 12/12/18 15:48 Hospitalization ordered by Jhon Kelley for Inpatient Admission. Preliminary diagnosis are Intertrochanteric fracture of femur, Urinary tract infection, site not specified. - Bed requested for Telemetry/MedSurg (Inpatient). - Status is Inpatient Admission. jd3 - Condition is Stable. - Problem is new. - Symptoms are unchanged. UTI on Admission? Yes Signatures: Dispatcher [employer] EDMS Sarkis Cee MD MD [facility] Markell Wesley PA PA jmm Garcia, Cindy, RN RN cg Sandra Sexton RN RN jl7 Rafi Riley RN RN jd3 Corrections: (The following items were deleted from the chart) 12/12 19:00 15:48 Hospitalization Ordered by Jhon Kelley MD for Inpatient Admission. Preliminary cg diagnosis is Intertrochanteric fracture of femur; Urinary tract infection, site not specified. Bed requested for Telemetry/MedSurg (Inpatient). Status is Inpatient Admission. Condition is Stable. Problem is new. Symptoms are unchanged. UTI on Admission? Yes. [facility] 19:45 19:00 12/12/2018 15:48 Hospitalization Ordered by Jhon Kelley MD for Inpatient jd3 Admission. Preliminary diagnosis is Intertrochanteric fracture of femur; Urinary tract infection, site not specified. Bed requested for Telemetry/MedSurg (Inpatient). Status is Inpatient Admission. Condition is Stable. Problem is new. Symptoms are unchanged. UTI on Admission? Yes. cg
--- NOTE | 2018-12-12 15:50 | ER ---
Nurse's Notes [facility] Name: Yahaira Serna Age: 78 yrs Sex: Female : 1940 Arrival Date: 12/12/2018 Time: 13:48 Bed 15 Private MD: Diagnosis: Intertrochanteric fracture of femur;Urinary tract infection, site not specified Presentation: 12/12 13:48 Presenting complaint: EMS states: Pt putting on pants, fell over and is c/o left hip jl7 pain. Denies hitting head, denies LOC. Currently being treated for UTI. Care prior to arrival: None. Mechanism of Injury: Fall from standing position. Trauma event details: Injury occurred in the [facility], Injury occurred: at home. Injury occurred: December 12, 2018 Injury occurred at: 13:15. 13:48 Acuity: LIO 3 jl7 13:48 Method Of Arrival: EMS: [facility] jl7 14:27 Transition of care: patient was not received from another setting of care. Onset of jl7 symptoms was December 12, 2018. Risk Assessment: Do you want to hurt yourself or someone else? Patient reports no desire to harm self or others. Initial Sepsis Screen: Does the patient meet any 2 criteria? No. Patient's initial sepsis screen is negative. Does the patient have a suspected source of infection? No. Patient's initial sepsis screen is negative. Trauma Activation: Physician: ED Physician; Name: ; Notified At: 13:40; Arrived At: 13:40 Physician: General Surgeon; Name: ; Notified At: 13:40; Arrived At: Physician: Radiology; Name: Ny; Notified At: 13:40; Arrived At: 13:43 Physician: Respiratory; Name: ; Notified At: 13:40; Arrived At: Physician: Lab; Name: ; Notified At: 13:40; Arrived At: Historical: - Allergies: 14:24 Cefzil; jl7 14:24 Ciprofloxacin; jl7 14:24 Keflex; jl7 14:24 Quinilones; jl7 - Home Meds: 14:24 Plavix 75 mg Oral tab 1 tab once daily [Active]; jl7 17:40 Hyzaar 100-25 mg Oral tab 1 tab once daily [Active]; aspirin 81 mg Oral chew 1 tab once jl7 daily [Active]; doxepin 50 mg Oral cap nightly [Active]; Cymbalta 60 mg Oral cpDR 1 cap once daily [Active]; Flonase 50 mcg/actuation Nasal spsn 2 sprays once daily [Active]; benzonatate 100 mg oral cap [Active]; tramadol 50 mg Oral tab [Active]; pravastatin 40 mg Oral tab 1 tab once daily [Active]; metformin 1,000 mg oral tab 1 tab 2 times per day [Active]; [place]wood Thyroid 15 mg Oral tab daily [Active]; Coreg Oral [Active]; losartan 25 mg oral tab [Active]; Lasix 40 mg Oral tab 1 tab once daily [Active]; spironolactone 100 mg Oral tab 1 tab once daily [Active]; Neurontin 600 mg Oral tab 1 tab 3 times per day [Active]; - PMHx: 14:24 CAD; Chronic fatigue syndrome; COPD; CVA; Diabetes - NIDDM; dyspnea; Fibromyalgia; jl7 Hypercoagulation; Hypertension; Sleep Apnea; Pacemaker; 17:40 Depression; Anxiety; jl7 - PSHx: 14:24 Shoulder Surgery; Carotid Artery Stents; CABG; jl7 - Immunization history: Last tetanus immunization: unknown. - Social history:: Smoking status: Patient/guardian denies using tobacco. - Ebola Screening: : No symptoms or risks identified at this time. Screenin:48 Abuse screen: Denies threats or abuse. Denies injuries from another. Tuberculosis jl7 screening: No symptoms or risk factors identified. 14:27 Nutritional screening: No deficits noted. Fall Risk Fall in past 12 months (25 points). jl7 No secondary diagnosis (0 pts). IV access (20 points). Ambulatory Aid- None/Bed Rest/Nurse Assist (0 pts). Total Gandhi Fall Scale indicates High Risk Score (45 or more points). Fall prevention measures have been instituted. Side Rails Up X 2 1:1 Attendant Assigned Frequent Obs/Assessments Occuring Family Present and informed to notify staff if the need to leave the bedside As available patient and family educated on Fall Prevention Program and Strategies. Primary Survey: 13:48 NO uncontrolled hemorrhage observed. Breathing/Chest: Respiratory pattern: regular, jl7 Respiratory effort: spontaneous, unlabored, Chest inspection: symmetrical rise and fall of the chest. Circulation: Skin color: pink, Skin temperature: warm. Disability Alert. Exposure/Environment: There is no evidence of uncontrolled external bleeding. Obvious injury(ies) are noted at this time: left hip pain. 14:00 Reassessment Breathing/Chest Respiratory pattern Regular Respiratory effort Spontaneous jl7 Unlabored Breath sounds Clear Chest inspection Symmetrical. Assessment: 13:48 General: Appears in no apparent distress. uncomfortable, Behavior is calm, cooperative, jl7 appropriate for age. Pain: Complains of pain in left hip Pain does not radiate. Pain currently is 0 out of 10 on a pain scale. at worst was 10 out of 10 on a pain scale. Neuro: Level of Consciousness is awake, alert, obeys commands, Oriented to person, place, time, situation. EENT: No signs and/or symptoms were reported regarding the EENT system. Cardiovascular: Patient's skin is warm and dry. Respiratory: Airway is patent Respiratory effort is even, unlabored, Respiratory pattern is regular, symmetrical. : Reports current UTI. Derm: Skin is pink, warm \T\ dry. Musculoskeletal: left lower extremity noted with outward rotation and shortened. 14:40 Reassessment: Dr. Meyer at bedside assessing pt and discussing plan of care. jl7 16:00 Reassessment: Pt reports increased pain, ERP notified, see MAR for orders. jl7 17:45 Reassessment: Pt's daughter and at bedside. Pt reports increased pain, ERP jl7 notified, see MAR for orders. 19:00 Reassessment: Patient appears in no apparent distress at this time. Patient and/or jd3 family updated on plan of care and expected duration. Pain level reassessed. Patient is alert, oriented x 3, equal unlabored respirations, skin warm/dry/pink. hospitalist at bedside. 19:00 General: Appears in no apparent distress. comfortable, Behavior is calm, cooperative, jd3 appropriate for age. Pain: Complains of pain in left hip. Neuro: Level of Consciousness is awake, alert, obeys commands, Oriented to person, place, time, situation. Cardiovascular: Capillary refill < 3 seconds Patient's skin is warm and dry. Respiratory: Airway is patent Respiratory effort is even, unlabored, Respiratory pattern is regular, symmetrical. GI: No signs and/or symptoms were reported involving the gastrointestinal system. : Reports reports current UTI prior to ER arrival. EENT: No signs and/or symptoms were reported regarding the EENT system. Derm: Skin is intact, Skin is dry, Skin is normal, Skin temperature is warm. Musculoskeletal: Circulation, motion, and sensation intact. left lower extremity noted with outward rotation and shortening. Vital Signs: 13:48 BP 125 / 71; Pulse 82; Resp 16 S; Temp 100.6(O); Pulse Ox 92% on R/A; Pain 0/10; jl7 14:00 BP 123 / 66; Pulse 79; Resp 16; Pulse Ox 100% on R/A; jl7 15:00 BP 126 / 69; Pulse 80; Resp 16 S; Pulse Ox 100% on R/A; jl7 16:00 BP 119 / 70; Pulse 79; Resp 16 S; Temp 100.8; Pulse Ox 100% on R/A; jl7 17:45 BP 125 / 61; Pulse 80; Resp 16 S; Temp 99.3(O); Pulse Ox 100% on R/A; jl7 19:05 BP 107 / 92; Pulse 77; Resp 17 S; Pulse Ox 100% on R/A; jd3 [place] Coma Score: 13:48 Eye Response: spontaneous(4). Verbal Response: oriented(5). Motor Response: obeys jl7 commands(6). Total: 15. Trauma Score (Adult): 13:48 Eye Response: spontaneous(1); Verbal Response: oriented(1); Motor Response: obeys jl7 commands(2); Systolic BP: > 89 mm Hg(4); Respiratory Rate: 10 to 29 per min(4); Radha Score: 15; Trauma Score: 12 14:00 Eye Response: spontaneous(1); Verbal Response: oriented(1); Motor Response: obeys jl7 commands(2); Systolic BP: > 89 mm Hg(4); Respiratory Rate: 10 to 29 per min(4); Radha Score: 15; Trauma Score: 12 15:00 Eye Response: spontaneous(1); Verbal Response: oriented(1); Motor Response: obeys jl7 commands(2); Systolic BP: > 89 mm Hg(4); Respiratory Rate: 10 to 29 per min(4); Radha Score: 15; Trauma Score: 12 17:45 Eye Response: spontaneous(1); Verbal Response: oriented(1); Motor Response: obeys jl7 commands(2); Systolic BP: > 89 mm Hg(4); Respiratory Rate: 10 to 29 per min(4); Radha Score: 15; Trauma Score: 12 ED Course: 13:48 Patient arrived in ED. jl7 13:48 Patient has correct armband on for positive identification. Placed in gown. Bed in low jl7 position. Call light in reach. Side rails up X 1. 13:48 Patient maintains SpO2 saturation greater than 95% on room air. Thermoregulation: warm jl7 blanket given to patient. 13:50 Triage completed. jl7 13:50 umbrella tipper hand on. Pulse ox on. NIBP on. Warm blanket given. jl7 13:51 [facility] 13:51 Sarkis Cee MD is Attending Physician. [facility] 14:20 Inserted saline lock: 22 gauge in right forearm, using aseptic technique. jl7 14:24 Arm band placed on right wrist. jl7 15:00 Kaur cath inserted, using sterile technique, 16 Fr., by ri, balloon inflated, to aa5 gravity drainage, urine specimen collected. returned cloudy urine. Patient tolerated well. 15:14 Sandra Sexton, RN is Primary Nurse. jl7 15:38 Initial lab(s) drawn, by ri, sent to lab. Urine collected: Kaur catheter specimen, jl7 cloudy. 15:40 No provider procedures requiring assistance completed. Patient admitted, IV remains in jl7 place. intact, No redness/swelling at site. 15:48 Jhon Kelley MD is Hospitalizing Provider. [facility] Administered Medications: 14:25 Drug: morphine 4 mg Route: IVP; Site: right forearm; jl7 14:45 Follow up: Response: No adverse reaction; Pain is decreased jl7 14:26 Drug: Zofran 4 mg Route: IVP; Site: right forearm; jl7 17:42 Follow up: Response: No adverse reaction jl7 15:50 Drug: NS 0.9% 1000 ml Route: IV; Rate: 1 bolus; Site: right forearm; jl7 16:50 Follow up: IV Status: Completed infusion; IV Intake: 1000ml jl7 16:10 Drug: fentaNYL (PF) 25 mcg Route: IVP; Site: right forearm; jl7 16:30 Follow up: Response: No adverse reaction; Pain is decreased jl7 17:00 Drug: LevaQUIN 750 mg Volume: 150 ml; Route: IVPB; Infused Over: 90 mins; Site: right jl7 forearm; 18:30 Follow up: Response: No adverse reaction; IV Status: Completed infusion jl7 17:10 Drug: Tylenol 1000 mg Route: PO; jl7 17:55 Follow up: Response: No adverse reaction; Temperature is decreased jl7 17:55 Drug: fentaNYL (PF) 25 mcg Route: IVP; Site: right forearm; jl7 18:20 Follow up: Response: No adverse reaction; Pain is decreased jl7 18:56 Drug: NS 0.9% 1000 ml Route: IV; Rate: 1 bolus; Site: right forearm; jl7 19:44 Follow up: Response: No adverse reaction; IV Status: Infusion continued upon admission jd3 Intake: 16:50 IV: 1000ml; Total: 1000ml. jl7 17:40 IV: 1000ml; Total: 2000ml. jl7 Output: 17:40 Urine: 800ml (Kaur); Total: 800ml. jl7 Outcome: 15:48 Decision to Hospitalize by Provider. [facility] 17:40 Patient's length of stay in the Emergency Department was greater than 2 hours. jl7 Patient's length of stay was extended due to staffing issues within the emergency department. 19:44 Admitted to Med/surg accompanied by tech, via stretcher, room 416, with chart, Report jd3 called to Olga FREITAS 19:44 Condition: stable 19:44 Instructed on the need for admit, Demonstrated understanding of instructions. 19:45 Patient left the ED. jd3 Signatures: Markell Wesley PA PA jmm Calderon, Audri RN RN aa5 Sandra Sexton RN RN jl7 Rafi Riley RN RN jd3 Corrections: (The following items were deleted from the chart) 17:55 16:10 Tylenol 1000 mg PO jl7 jl7
[2018-12-12] MEDS ORDERED: FENTANYL CITR 100 MCG/2 ML ONE (16:08)
[2018-12-12] MEDS ORDERED: ACETAMINOPHEN 500 MG TAB ONE (16:55)
[2018-12-12] MEDS ORDERED: Levofloxacin 750mg IV 750 MG/150 ML BAG IV ONE (16:55)
[2018-12-12] MEDS ORDERED: ONDANSETRON 4 MG/2 ML VIAL IV PRN (17:15)
[2018-12-12 17:34] LABS: Urine Blood 3+ (NEG); Urine Glucose NEGATIVE (NEG); Urine Protein 2+ (NEG)
[2018-12-12 20:11] LABS: Blood Morphology Comment NOT SEEN (NOT SEEN); Platelet Estimate ADEQ; Platelets, Giant FEW; Urine White Blood Cell Casts OK
[2018-12-12] MEDS: MORPHINE 4 MG/ML SYR IV PRN (20:15)
[2018-12-12] MEDS: NA CHLORIDE 0.9% 1,000 ML IV SCH (20:39)
--- NOTE | 2018-12-12 21:39 | P.HP ---
Certification for Inpatient Patient admitted to: Inpatient With expected LOS: >2 Midnights Practitioner: I am a practitioner with admitting privileges, knowledge of patient current condition, hospital course, and medical plan of care. Services: Services provided to patient in accordance with Admission requirements found in Title 42 Section 412.3 of the Code of Federal Regulations Patient History Date of Service: 12/12/18 Reason for admission: HIP PAIN, FALL History of Present Illness: MS. SUTHERLAND IS A PATIENT WHO IS OBESE, HAS CAD, DJD, FIBROMYALGIA, AT HOME IN THE CLOSET PUTTING PANTS ON SHE FELL AND BROKE L HIP. SHE DENIES CHEST PAIN BUT HAS MODERATE PAIN IN L HIP. Allergies cefprozil [From Cefzil] Allergy (Verified 11/03/18 12:14) Unknown cephalexin monohydrate [From Keflex] Allergy (Verified 11/03/18 12:14) Anaphylaxis ciprofloxacin Allergy (Verified 11/03/18 12:14) Unknown Quinilones Allergy (Uncoded 11/03/18 12:14) Unknown Home Medications: Aspirin Tab [Wilver Aspirin*] 325 mg PO DAILY 06/26/14 Calc/Mag/Naveed/Br/Hb#180/Min#36 [Miseflex-C Tablet] 1 each PO BID 06/26/14 Clopidogrel Bisulfate [Plavix*] 75 mg PO DAILY 06/26/14 Doxepin HCl [Sinequan] 50 mg PO BEDTIME 06/26/14 Duloxetine HCl [Cymbalta] 60 mg PO DAILY 06/26/14 Fluticasone Propionate [Flonase] 16 gm NS DAILYPRN PRN 06/26/14 Gabapentin [Neurontin] 600 mg PO BID 06/26/14 Ibuprofen [Advil] 400 mg PO TID PRN 06/26/14 Loratadine [Claritin*] 10 mg PO DAILY 06/26/14 Metformin ER [Glucophage ER*] 1,000 mg PO BID 06/26/14 Multivitamin [Multivitamins] 1 each PO DAILY 06/26/14 Pravastatin [Pravachol*] 40 mg PO DAILY 06/26/14 Carvedilol [Coreg*] 6.25 mg PO BID 11/03/18 Spironolactone 50 mg PO DAILY 11/03/18 Thyroid Tab [[place]incoln Thyroid*] 45 mg PO DAILY 11/03/18 - Past Medical/Surgical History Diabetic: Yes -: COPD -: SLEEP APNEA -: DM -: HTN -: CAD SP STENTS -: CAROTID STENOSIS SP COLE SURGERY -: DJD -: OBESITY -: FIBROYALGIA -: EDEMA -: QUAD BY-PASS -: STENT PLACEMENTS -: APPEND -: HYSTERECOMY -: RIGHT KNEE SX -: RIGHT SHOULDER SX - Social History Smoking Status: Former smoker Alcohol use: No CD- Drugs: No Caffeine use: Yes Review of Systems 10-point ROS is otherwise unremarkable General: Weakness Respiratory: Cough, Shortness of Breath Physical Examination - Vital Signs Temperature: 96.6 F Blood Pressure: 106/53 Pulse: 72 Respirations: 16 Pulse Ox (%): 97 - Physical Exam General: Moderate distress, Obese HEENT: Atraumatic, PERRLA, Mucous membr. moist/pink, EOMI, Sclerae nonicteric Neck: Supple, 2+ carotid pulse no bruit, No LAD, Without JVD or thyroid abnormality Respiratory: Clear to auscultation bilaterally, Normal air movement Cardiovascular: Regular rate/rhythm, Normal S1 S2 Gastrointestinal: Normal bowel sounds, No tenderness Musculoskeletal: No tenderness Integumentary: No rashes Neurological: Normal gait, Normal speech, Normal strength at 5/5 x4 extr, Normal tone, Normal affect Lymphatics: No axilla or inguinal lymphadenopathy - Studies Laboratory Data (last 24 hrs) 12/12/18 14:20: Sodium 129 L, Potassium 4.2, BUN 19 H, Creatinine 0.90, Glucose 150 H, Total Bilirubin 0.8, AST 25, ALT 19, Alkaline Phosphatase 94 12/12/18 14:20: WBC 10.8, Hgb 11.9 L, Hct 34.7 L, Plt Count 235 Assessment and Plan - Problems (Diagnosis) (1) Closed left hip fracture Current Visit: Yes Status: Acute Plan: DR. KAY TO DO SURGERY DMITRI. SHE IS MEDICALLY STABLE. PAIN CONTROL. (2) Preoperative clearance Current Visit: Yes Status: Acute Plan: SHE IS AT MODERATE RISK FOR SURGERY AND POST OP RECOVERY. SHE HAS HAD CAD, STENTS, BYPASS ETC. SHE IS CURRENTLY STABLE WITH NO ACUTE PAIN IN THE CHEST OR ANGINA SYMPTOMS. (3) History of coronary artery disease Onset Date: 02/02/17 Current Visit: No Status: Chronic (4) Hypertension Onset Date: 02/02/17 Current Visit: No Status: Acute Plan: CURRENTLY LOW NORMAL WITH PAIN MEDS. Qualifiers: Hypertension type: essential hypertension Qualified Code(s): I10 - Essential (primary) hypertension (5) Diabetes type 2 with atherosclerosis of arteries of extremities Onset Date: 02/02/17 Current Visit: No Status: Chronic Plan: MILD. OBESITY RELATED. CHECK A1C AND LDL. - Advance Directives Does patient have a Living Will: Yes Does patient have a Durable POA for Healthcare: No - Code Status/Comfort Care Code Status Assessed: Yes Code Status: Full Code
--- NOTE | 2018-12-12 22:06 | CON ---
Date of Consultation: 12/12/2018 History Of Present Illness: This is my first time I am seeing this patient to my knowledge. She is a 78-year-old female, who unfortunately fell. She has been seen and examined in the emergency room w here she was ruled out for other injuries with the exception of her left hip. X-rays were taken of l eft hip, which did not reveal a displaced intertrochanteric fracture on the left. Physical Examination: All of her long bones and joints are palpated without pain or crepitation. She does have pain with m ovement or palpation of the left hip. She is neurovascularly intact. Assessment: A 78-year-old female with apparently an isolated injury to her left hip. At this time, risks, benefits, and alternatives to operative intervention have been discussed with the patient. Juanito smith states she understands things as presented and wishes to proceed. It should be noted she is on Annemarie vix and aspirin, and apparently has had a recent pacemaker by report. We will need most likely the i nput of Cardiology and primary care physician, but I do not think we need to wait until Plavix or asp irin has cleared her system as this is not standard. She says she understands things as presented an d all of her questions have been answered. AUNDREA Voice ID: [id number] Report ID: [id number]
[2018-12-12] MEDS: MORPHINE 2 MG/ML SYR IV PRN (22:40)
--- NOTE | 2018-12-12 23:03 | CON ---
Date of Consultation: 12/12/2018 Reason For Consultation: Left hip fracture and history of coronary artery disease. Cardiac clearanc e is requested. Patient seen on 12/12/2018. History Of Present Illness: Ms. Serna is a 78-year-old woman, who has had a complicated past medica l history, but came in with a left hip fracture. No cardiac complaints. Denies chest pain, shortnes s of breath, nausea, vomiting, diaphoresis, PND, orthopnea, pedal edema, palpitations, or syncope. C ardiac clearance is requested for left hip surgery. Workup so far is fairly unremarkable. Her EKG s howed nonspecific changes. She has a sodium of 129 and glucose of 150. The rest of her blood work i s unremarkable. Past Medical History: Includes: 1.CAD, status post CABG. 2.Aortic stenosis, status post TAVR. 3.Diabetes. 4.Hypertension. 5.History of CEA and status post stent. 6.History of pacemaker placement. 7.Sleep apnea. 8.Fibromyalgia. 9.COPD. 10.CVA. 11.History of hypercoagulable state. Allergies: INCLUDE CIPRO AND CEPHALEXIN. Review of Systems: Negative. Social History: Negative. Family History: Negative. Medications: Include aspirin, Plavix, Coreg, Cymbalta, metformin, Neurontin, Pravachol, Synthroid, a nd Aldactone. Physical Examination: Vital Signs: Stable. Sinus rhythm. Afebrile. HEENT: Negative. Neck: Supple. No bruit. Chest: Clear. Cardiac: Revealed a regular rhythm and rate. No murmurs, gallops, or rubs. Abdomen: Benign. Extremities: Revealed no clubbing, cyanosis, or edema. Neurologic: She was nonfocal. Skin: Dry and intact. Diagnostic Data: As stated earlier. Impression And Plan: The patient is status post left hip fracture, requiring surgery, has a history of aortic stenosis, status post transcatheter aortic valve replacement. I think, repeating an echoca rdiogram would be reasonable. She is on Plavix and I am not so sure if the Orthopedic Surgery wants to hold her Plavix for a few days before surgery or just operate. She is at moderate risk for a dread operative complication because of her history of coronary artery disease, carotid artery disease, aor tic stenosis, status post TAVR and pacemaker. She also has a history of cerebrovascular accident and chronic obstructive pulmonary disease. Her diabetes is fairly well controlled. Her blood pressure is well controlled. She has a pacemaker. She has a history of sleep apnea and hypercoagulable state . When she goes to surgery, I suggest ICU postoperative monitoring and Lovenox or Xarelto afterwards . I will check my office records in details as to when her last stress test was. I will discuss the case further with Dr. Kelley. We will continue to follow. BRAD/NEIL Voice ID: [id number] Report ID: [id number]
[2018-12-13] MEDS ORDERED: AMPICILLIN SODIUM 500 MG VIAL ONE (00:34)
[2018-12-13] MEDS ORDERED: NA CHLORIDE 0.9% 50 ML ONE (00:38)
[2018-12-13] MEDS: AMPICILLIN SODIUM 500 MG in NA CHLORIDE 0.9% 50 ML IVPB SCH ×3 (00:42→18:01)
[2018-12-13] MEDS: NA CHLORIDE 0.9% 1,000 ML IV SCH (03:37)
[2018-12-13] MEDS: MORPHINE 4 MG/ML SYR IV PRN ×4 (03:51→20:32)
[2018-12-13 04:20] VITALS: BMI 40.4
[2018-12-13 06:36] LABS: Potassium 3.9 mmol/L (3.5-5.1)
[2018-12-13 06:37] LABS: Absolute Lymphocytes (CBC) 0.7 K/uL (0.7-4.9); Basophils % 0.5 % (0-1.3); Hematocrit 28.1 % (36.0-45.0); Lymphocytes % 8.2 % (15.3-44.8); MPV 8.9 fL (7.6-11.3); RBC Red Blood Cell Count 2.97 M/uL (3.86-4.86)
--- NOTE | 2018-12-13 08:15 | RAD REPORT ---
EXAM DESCRIPTION: Jenae Single View12/12/2018 10:32 pm CLINICAL HISTORY: Shortness of breath COMPARISON: 2017 FINDINGS: Mild bilateral pulmonary opacities. . The heart is mildly to moderately enlarged. Postsurgical changes involve the chest. Pacemaker leads in place IMPRESSION: Mild CHF
[2018-12-13] MEDS: MORPHINE 2 MG/ML SYR IV PRN ×3 (08:16→18:35)
[2018-12-13] MEDS: IPRATROPIUM BROM 0.5MG/2.5ML NEB SCH ×3 (09:10→20:00)
[2018-12-13] MEDS: LEVALBUTEROL 0.63 MG/3 ML NEB NEB SCH ×3 (09:10→20:00)
[2018-12-13] MEDS ORDERED: FUROSEMIDE 20 MG/ 2ML VIAL IV ONE (09:45)
--- NOTE | 2018-12-13 09:46 | RAD REPORT ---
EXAM DESCRIPTION: Jenae Single View12/13/2018 9:39 am CLINICAL HISTORY: Shortness of breath COMPARISON: December 12 FINDINGS: The lungs appear clear of acute infiltrate. The heart is mildly to moderately enlarged. Postsurgical changes involve the chest. Pacemaker leads in place IMPRESSION: Mild CHF without significant change
--- NOTE | 2018-12-13 10:02 | RAD REPORT ---
EXAM DESCRIPTION: RAD - Hip Left 2 View - 12/12/2018 2:43 pm CLINICAL HISTORY: Fall Fall, left hip pain COMPARISON: No relevant comparison FINDINGS: AP pelvis and left hip -multiple projections Moderately displaced intertrochanteric fracture of the proximal left femur is present. No dislocation is evident.
[2018-12-13 11:14] LABS: Arterial Blood Carboxyhemoglob 0.2 % (0-1.5); Blood Gas Oxyhemoglobin 80.1 % (94-97); Blood O2 Saturation 80.5 % (92-98.5)
--- NOTE | 2018-12-13 11:57 | ECHO ---
HEIGHT: 5 ft 3 in WEIGHT: 228 lb 0 oz DATE OF STUDY: 12/13/[address]: Dash Squires MD 2-DIMENSIONAL: YES M.MODE: YES DOPPLER: YES COLOR FLOW: YES TDS: NO PORTABLE: NO DEFINITY: NO BUBBLE STUDY: NO DIAGNOSIS: AORTIC VALVE REPLACEMENT, CARDIAC CLEARANCE CARDIAC HISTORY: CATHERIZATION: YES SURGERY: YES PROSTHETIC VALVE: YES PACEMAKER: YES MEASUREMENTS (cm) DIASTOLIC (NORMALS) SYSTOLIC (NORMALS) IVSd 1.0 (0.6-1.2) LA Diam 4.0 (1.9-4.0) LVEF 73% LVIDd 5.1 (3.5-5.7) LVIDs 2.9 (2.0-3.5) %FS 42% LVPWd 1.1 (0.6-1.2) Ao Diam 2.5 (2.0-3.7) 2 DIMENSIONAL ASSESSMENT: RIGHT ATRIUM: NORMAL LEFT ATRIUM: NORMAL RIGHT VENTRICLE: NORMAL LEFT VENTRICLE: NORMAL TRICUSPID VALVE: NORMAL MITRAL VALVE: NADIR STENOSIS PULMONIC VALVE: NORMAL AORTIC VALVE: STATUS POST TRANSCATHETER AORTIC VALVE REPLACEMENT PERICARDIAL EFFUSION: NONE AORTIC ROOT: NORMAL LEFT VENTRICULAR WALL MOTION: NORMAL DOPPLER/COLOR FLOW: MILD MITRAL AND TRICUSPID REGURGITATION. MILD MITRAL STENOSIS. MITRAL VALVE AREA 1.5 CENTIMETERS SQUARED. COMMENTS: NORMAL LEFT VENTRICULAR SIZE AND FUNCTION. LEFT VENTRICULAR EJECTION FRACTION 73%. STATUS POST TRANSCATHETER AORTIC VALVE REPLACEMENT, NORMAL FUNCTION. NO AORTIC REGURGITATION. MILD MITRAL STENOSIS. MITRAL VALVE AREA 1.5 CENTIMETERS SQUARED. MILD MITRAL AND TRICUSPID REGURGITATION. NORMAL RIGHT VENTRICULAR SYSTOLIC PRESSURE. TECHNOLOGIST: Delores CHIU
[2018-12-13] MEDS ORDERED: Levofloxacin500mg IV 500 MG/100 ML BAG IV SCH (17:00)
--- NOTE | 2018-12-13 18:13 | PN ---
Subjective: The patient is feeling short of breath this morning, lying down in bed. She refuses to do a CT chest, pulmonary angiogram. I gave her a stat order for Xopenex nebulizer, Lasix 20 mg IV. Has a chest x-ray showed mild CHF. She is very anxious also, anticipating surgery for her left hip f racture. Objective: Vital Signs: Blood pressure 157/60, respirations 18, pulse is 78. Neck: No JVD. No carotid bruits. Chest: Decreased breath sounds bilaterally. Abdomen: She is morbidly obese. Abdomen with no guard ing, no rebound, no rigidity. Investigations: White count 9500. Her BNP was 4468. While we were doing that, blood pressure 104/53 and pulse of 78. Assessment And Plan: 1.Chronic obstructive pulmonary disease exacerbation. She has chronic obstructive pulmonary disease as known history. Continue Xopenex, she is tolerating well. We will avoid steroids if we can. Cur rently waiting for surgery from the hip fracture, left side. Pending surgery tomorrow delayed for [address] Squires. Medically cleared with some moderate risk because of multiple matty rbidities including coronary artery disease, stents in the past, coronary artery bypass graft, bilate ral carotid artery surgeries, and morbid obesity plus chronic obstructive pulmonary disease. 2.Mild congestive heart failure. Continue Lasix 20 mg IV 1 dose and p.r.n. after that saline lock t he IV. Prognosis overall guarded. RVD/MODL Voice ID: [id number] Report ID: [id number]
[2018-12-13] MEDS: ACETAMINOPHEN 500 MG TAB PO PRN (20:35)
[2018-12-13] MEDS: ALPRAZOLAM 0.25 MG TABLET PO PRN (22:08)
--- NOTE | 2018-12-13 22:25 | PN ---
Date of Progress Note: 12/13/2018 Ms. Serna has a very complicated past medical history, was admitted for hip fracture. We were asked to see her for clearance. Yesterday, I saw her and she was actually in no acute distress from a car diovascular standpoint. Her chest was clear. She had an echocardiogram ordered because of her histo ry of cardiac disease including valvular disease and coronary artery disease. This morning, however, she appeared to be in mild congestive heart failure, has received significant amount of normal salin e for IV hydration and multiple doses of medication for pain. She was complaining of shortness of br eath. I agree with Dr. Kelley's use of Lasix. She definitely remains at moderate risk for perioperat ellis mortality. Her echocardiogram which was done today is perfectly normal with a normal aortic valv e function and normal ejection fraction. No effusion. She probably should have postoperative ICU mo nitoring. We will see how she feels like tomorrow from a breathing standpoint and I will leave the d ecision for surgery up to the orthopedic surgeon and Dr. Kelley. BRAD/NEIL Voice ID: [id number] Report ID: [id number]
[2018-12-14] MEDS: AMPICILLIN SODIUM 500 MG in NA CHLORIDE 0.9% 50 ML IVPB SCH ×2 (00:08→08:06)
[2018-12-14] MEDS: MORPHINE 4 MG/ML SYR IV PRN ×3 (00:09→08:08)
[2018-12-14] MEDS: MORPHINE 2 MG/ML SYR IV PRN ×3 (01:59→23:15)
[2018-12-14] MEDS: LEVALBUTEROL 0.63 MG/3 ML NEB NEB SCH ×4 (02:00→20:59)
[2018-12-14] MEDS: IPRATROPIUM BROM 0.5MG/2.5ML NEB SCH ×4 (02:00→20:59)
[2018-12-14 07:37] LABS: Absolute Lymphocytes (CBC) 0.8 K/uL (0.7-4.9); Basophils % 0.5 % (0-1.3); Lymphocytes % 11.5 % (15.3-44.8)
[2018-12-14 07:53] LABS: Magnesium 2.3 mg/dL (1.8-2.4)
[2018-12-14] MEDS ORDERED: NA CHLORIDE 0.9% 1,000 ML ONE (10:36)
[2018-12-14] MEDS ORDERED: PROPOFOL 200 MG/20 ML VIAL IV ONE (10:48)
[2018-12-14] MEDS ORDERED: FENTANYL CITR 100 MCG/2 ML ONE (10:49)
[2018-12-14] MEDS ORDERED: MIDAZOLAM HCL 2 MG/2 ML INJ ONE (10:49)
[2018-12-14] MEDS ORDERED: LIDOCAINE 2% MPF 5 ML VIAL ONE (10:50)
[2018-12-14] MEDS ORDERED: ONDANSETRON 4 MG/2 ML VIAL ONE ×2 (10:50→13:18)
[2018-12-14] MEDS ORDERED: ROCURONIUM 50 MG/5 ML VIAL IV ONE (10:50)
[2018-12-14] MEDS ORDERED: EPHEDRINE SULF 50 MG/ML VIAL ONE (11:20)
[2018-12-14] MEDS ORDERED: NS 0.9% VIAL 10 ML ONE (11:21)
--- NOTE | 2018-12-14 12:06 | P.CNS ---
Date of Consult: 12/14/18 Reason for Consult: Preoperative management Chief Complaint: Hip fracture History of Present Illness: Patient is 78 years of age admitted with left hip fracture apparently she tripped and fell history of COPD is on bronchodilators not on any oxygen quit smoking in 2008 history of coronary artery disease denies any recent history of chest pain cough sputum fever chills Allergies cefprozil [From Cefzil] Allergy (Verified 11/03/18 12:14) Unknown cephalexin monohydrate [From Keflex] Allergy (Verified 11/03/18 12:14) Anaphylaxis ciprofloxacin Allergy (Verified 11/03/18 12:14) Unknown Quinilones Allergy (Uncoded 11/03/18 12:14) Unknown Home Medications: Aspirin Tab [Wilver Aspirin*] 81 mg PO DAILY 06/26/14 Calc/Mag/Naveed/Br/Hb#180/Min#36 [Miseflex-C Tablet] 1 each PO BID 06/26/14 Clopidogrel Bisulfate [Plavix*] 75 mg PO DAILY 06/26/14 Doxepin HCl [Sinequan] 50 mg PO BEDTIME 06/26/14 Duloxetine HCl [Cymbalta] 60 mg PO DAILY 06/26/14 Fluticasone Propionate [Flonase] 16 gm NS DAILYPRN PRN 06/26/14 Gabapentin [Neurontin] 600 mg PO TID 06/26/14 Metformin ER [Glucophage ER*] 1,000 mg PO DAILY 06/26/14 Multivitamin [Multivitamins] 1 each PO DAILY 06/26/14 Pravastatin [Pravachol*] 40 mg PO BEDTIME 06/26/14 Carvedilol [Coreg*] 6.25 mg PO BID 11/03/18 Spironolactone 100 mg PO DAILY 11/03/18 Thyroid Tab [Big Bar Thyroid*] 45 mg PO DAILY 11/03/18 Fluticasone/Umeclidin/Vilanter [Trelegy Ellipta 100-62.5-25] 1 each IH BID 12/13 Furosemide 40 mg PO DAILY 12/13/18 Losartan/Hydrochlorothiazide [Hyzaar 100-25 Tablet] 1 each PO DAILY 12/13/18 Sulfamethoxazole/Trimethoprim [Bactrim 400-80 mg Tablet] 2 each PO BID 12/13/18 Tizanidine [Zanaflex] 4 mg PO BEDTIME PRN 12/13/18 - Past Medical/Surgical History Diabetic: Yes -: COPD -: SLEEP APNEA -: DM -: HTN -: CAD SP STENTS -: CAROTID STENOSIS SP COLE SURGERY -: DJD -: OBESITY -: FIBROYALGIA -: EDEMA -: QUAD BY-PASS -: STENT PLACEMENTS -: APPEND -: HYSTERECOMY -: RIGHT KNEE SX -: RIGHT SHOULDER SX - Social History Smoking Status: Unknown if ever smoked Alcohol use: No CD- Drugs: No Caffeine use: Yes Place of Residence: Home Review of Systems General: Weakness Musculoskeletal: Other (Pain in the left) Physical Examination Temp Pulse Resp BP Pulse Ox 97.7 F 70 18 118/58 L 98 12/14/18 08:00 12/14/18 08:00 12/14/18 08:38 12/14/18 08:00 12/14/18 08:38 General: Moderate distress Respiratory: Clear to auscultation bilaterally, Diminished Cardiovascular: No edema, Normal pulses Gastrointestinal: Normal bowel sounds, Soft and benign - Problems (1) Closed left hip fracture Current Visit: Yes Status: Acute Plan: Patient is 78 years of age with history of COPD coronary artery disease admitted with left hip fracture she is high risk patient bed niece to be operated nevertheless chest x-ray shows COPD changes labs reviewed mildly anemic hypoxic maintain sats over 94% bronchodilators patient is an schedule bronchodilators vital signs stable the has been realizes that she is at high risk (2) COPD (chronic obstructive pulmonary disease) Current Visit: Yes Status: Acute Plan: Patient is hypoxic history of COPD continue with bronchodilators rate sat to more a 94% stable for operation Qualifiers: COPD type: unspecified COPD Qualified Code(s): J44.9 - Chronic obstructive pulmonary disease, unspecified
--- NOTE | 2018-12-14 12:32 | P.BOP ---
Preoperative diagnosis: left it fracture Postoperative diagnosis: same Primary procedure: left hip carol rajat Estimated blood loss: 30ccs Anesthesia: General Complications: None Transferred to: Recovery Room Condition: Good
[2018-12-14] MEDS ORDERED: GLYCOPYRROLATE 0.2 MG/ML SYR ONE (12:33)
[2018-12-14] MEDS ORDERED: NEOSTIGMINE 1 MG/ML -10 ML VIAL ONE (12:33)
--- NOTE | 2018-12-14 12:48 | RAD REPORT ---
EXAM DESCRIPTION: RAD - Hip In Or - 12/14/2018 12:40 pm FINDINGS: The fluoroscopy time 2.3 minutes. Four fluoroscopic spot images obtained. And intramedullary rajat affix a femoral fracture. There is less displacement of fracture fragments Surgery performed by Dr. Meyer
[2018-12-14] MEDS: HYDROMORPHONE HCL 1 MG/ML INJ ONE ×2 (13:20→13:28)
[2018-12-14] MEDS ORDERED: PROMETHAZINE 25 MG/ML VIAL ONE (13:36)
[2018-12-14] MEDS: ALPRAZOLAM 0.25 MG TABLET PO PRN ×2 (14:57→22:13)
[2018-12-14] MEDS: PIPER/TAZO/NS 3.375gm 3.375 GM/100 ML BAG IV SCH (17:54)
[2018-12-15] MEDS: PIPER/TAZO/NS 3.375gm 3.375 GM/100 ML BAG IV SCH ×3 (00:07→17:16)
--- NOTE | 2018-12-15 00:23 | OP ---
Date of Procedure: 12/14/2018 Surgeon: Taz Meyer MD Preoperative Diagnosis: Left hip intertrochanteric fracture, which is displaced. Postperative Diagnosis: Left hip intertrochanteric fracture, which is displaced. Procedure Performed: Left hip closed reduction with intramedullary rajat fixation. Estimated Blood Loss: 30 mL. Complications: There were no complications. Specimens: No pathology specimens sent. Indication For Operation: Ms. Serna is a 78-year-old female, who unfortunately fell injuring her le ft lower extremity. She was seen and examined in the emergency department. She was ruled out for ot her injuries; however, she did have a significant amount of pain related to her left hip. X-rays dem onstrated a grossly displaced intertrochanteric fracture on the left. All risks, benefits, and alter natives to procedures were discussed with the patient and her family. They state they understand thi ngs as presented and wished to proceed. Description Of Procedure: The patient was taken to the operating room and placed in supine position. General anesthesia was obtained by Anesthesia staff. Following this, she was transferred onto the operative table. Her legs were then properly positioned with all bony prominences being checked by t he anesthesia. This allows for use of the C-arm, getting good AP and lateral radiographs. Reduction maneuver was performed. The hip was able to be reduced somewhat, however, it was definitely comminu ender and displaced. The left lower extremity was then prepped and draped in usual sterile fashion for the procedure. C-arm was used to howard out the position of the greater trochanter. There was quite a bit of adipose tissue making the access to the greater trochanter a little more difficult. Attempt s were made to place the entry portal as far medial as possible to avoid displacement of the shaft la terally with the rajat. The entry portal was made and a guide pin was placed without difficulty. Foll owing this, the Biomet intramedullary rajat was then placed at appropriate depth. It was observed unde r biplanar C-arm radiography as the cephalomedullary guide pin is placed. Cephalomedullary screw is measured and placed. There was some lateral displacement and compression technique was used with the screw. Following this, a second antirotation screw was placed, distal interlocking screw was placed . The wounds were irrigated and closed using Vicryl followed by alfredo. The patient was placed in an Aquacel dressing, awakened, and taken to the recovery room in good condition. There were no compl ications. /MODIlir Voice ID: [id number] Report ID: [id number]
--- NOTE | 2018-12-15 01:57 | PN ---
Date of Progress Note: 12/14/2018 Ms. Serna had been followed by me for the last couple of days because of a hip fracture and multiple cardiovascular issues including carotid disease, coronary artery disease, aortic valve disease. She had an echocardiogram that was done yesterday showed normal ejection fraction, normally functioning a transcutaneous aortic valve replacement. Overnight, has done very well from a congestive heart fredis lure standpoint. She has diuresed well. She was asymptomatic. She underwent her hip fracture surge ry successfully and has done well postoperatively. There was no arrhythmia. No clinical evidence of congestive heart failure. I would continue her present regimen and recommend we resume aspirin and Plavix whenever is okay with Dr. Kelley and Orthopedic Surgery. I will continue to follow her. BRAD/NEIL Voice ID: [id number] Report ID: [id number]
[2018-12-15] MEDS: IPRATROPIUM BROM 0.5MG/2.5ML NEB SCH ×4 (02:10→19:40)
[2018-12-15] MEDS: LEVALBUTEROL 0.63 MG/3 ML NEB NEB SCH ×4 (02:10→19:40)
[2018-12-15] MEDS: MORPHINE 4 MG/ML SYR IV PRN (03:14)
[2018-12-15] MEDS: ALPRAZOLAM 0.25 MG TABLET PO PRN ×2 (05:25→17:25)
[2018-12-15] MEDS: MORPHINE 2 MG/ML SYR IV PRN ×3 (06:57→20:36)
[2018-12-15] MEDS: CLOPIDOGREL 75 MG TABLET PO SCH (09:12)
[2018-12-15] MEDS: ASPIRIN EC 81 MG TAB PO SCH (09:12)
[2018-12-15] MEDS: ACETAMINOPHEN 500 MG TAB PO PRN (09:15)
[2018-12-16] MEDS: PIPER/TAZO/NS 3.375gm 3.375 GM/100 ML BAG IV SCH ×3 (00:21→18:25)
[2018-12-16] MEDS: MORPHINE 2 MG/ML SYR IV PRN ×2 (00:22→10:17)
[2018-12-16] MEDS: LEVALBUTEROL 0.63 MG/3 ML NEB NEB SCH ×4 (01:50→20:00)
[2018-12-16] MEDS: IPRATROPIUM BROM 0.5MG/2.5ML NEB SCH ×4 (01:50→20:00)
--- NOTE | 2018-12-16 02:55 | PN ---
Subjective: Patient is still not better. Denies any chest pain, nausea, or vomiting after surgery i s performed. Now she is less anxious. Physical Examination: Vital Signs: Blood pressure 132/62, pulse is 72. HEENT: No JVD. No carotid bruits. Chest: Clear. Heart: Irregular. Abdomen: No guarding, no rebound. No rigidity. Laboratory Data: White count 6.9, hemoglobin 9.9, hematocrit 29. Chem-7 normal. Assessment And Plan: 1.Left hip fracture, referred to rehab now, possible transfer tomorrow or day after. 2.Chronic obstructive pulmonary disease, currently stable. Continue with nebulizer treatments. 3.History of coronary artery disease, carotid endarterectomy bilaterally, stent in the past, pacemak er in the past. JAGDEEP/NEIL Voice ID: [id number] Report ID: [id number]
[2018-12-16] MEDS: ACETAMINOPHEN 500 MG TAB PO PRN (03:49)
[2018-12-16 05:40] LABS: Absolute Lymphocytes (CBC) 0.8 K/uL (0.7-4.9); Basophils % 0.5 % (0-1.3); Hematocrit 25.6 % (36.0-45.0); Lymphocytes % 10.2 % (15.3-44.8); RBC Red Blood Cell Count 2.76 M/uL (3.86-4.86)
[2018-12-16 05:50] LABS: Magnesium 2.1 mg/dL (1.8-2.4); Potassium 3.8 mmol/L (3.5-5.1)
[2018-12-16] MEDS ORDERED: POTASSIUM 25 MEQ EFFERV TAB PO ONE (08:00)
[2018-12-16] MEDS: CLOPIDOGREL 75 MG TABLET PO SCH (10:16)
[2018-12-16] MEDS: ASPIRIN EC 81 MG TAB PO SCH (10:16)
--- NOTE | 2018-12-16 10:53 | PN ---
Date of Progress Note: 12/15/2018 Mrs. Serna now is 1 day status post hip surgery. Physical Examination: Vital Signs: When she first came in, she was in mild congestive heart failure. She has a normal ech ocardiogram. Overnight, she is stable hemodynamically in sinus rhythm. No evidence of congestive he art failure clinically. Chest: Clear. Extremities: Leg show trace edema. I would continue her present regimen. She is on aspirin and Plavix. I will sign off her case for no w. BRAD/NEIL Voice ID: [id number] Report ID: [id number]
[2018-12-16] MEDS: TRAMADOL HCL 50 MG TAB PO PRN (15:26)
--- NOTE | 2018-12-16 16:19 | PN ---
Date of Progress Note: 12/15/2018 Subjective: Patient is seen today. She is in her bed. She does appear to be slightly sedated. She does appear to be comfortable. She has multiple complaints of pain. Her dressing is clean, dry, an d intact. She is neurovascularly intact. Any attempted movement or manipulation of her left lower e xtremity causes complaints of discomfort. She has been with Physical Therapy today and they did sit her up on the side of bed with some difficulty. She has been encouraged to work well with physical t herapist and hopefully she will pursue this with some vigor. Otherwise, all of her questions were an swered. Her hemoglobin is 9.9, and otherwise appears to be doing well. /MODL Voice ID: [id number] Report ID: [id number]
[2018-12-16] MEDS: ALPRAZOLAM 0.25 MG TABLET PO PRN (18:32)
[2018-12-17] MEDS: TRAMADOL HCL 50 MG TAB PO PRN (01:48)
[2018-12-17] MEDS: PIPER/TAZO/NS 3.375gm 3.375 GM/100 ML BAG IV SCH ×2 (01:50→08:55)
[2018-12-17] MEDS: LEVALBUTEROL 0.63 MG/3 ML NEB NEB SCH ×3 (02:00→14:51)
[2018-12-17] MEDS: IPRATROPIUM BROM 0.5MG/2.5ML NEB SCH ×3 (02:00→14:51)
[2018-12-17] MEDS: ALPRAZOLAM 0.25 MG TABLET PO PRN ×2 (02:54→12:58)
[2018-12-17 06:18] LABS: Absolute Lymphocytes (CBC) 1.2 K/uL (0.7-4.9); Basophils % 0.7 % (0-1.3); Hematocrit 26.7 % (36.0-45.0); Lymphocytes % 13.9 % (15.3-44.8); MPV 8.6 fL (7.6-11.3); RBC Red Blood Cell Count 2.88 M/uL (3.86-4.86)
[2018-12-17 06:31] LABS: BUN Blood Urea Nitrogen 12 mg/dL (7-18); Bicarbonate 29 mmol/L (21-32); Glucose Level 135 mg/dL (74-106); Magnesium 2.3 mg/dL (1.8-2.4); Potassium 3.8 mmol/L (3.5-5.1); Sodium Level 134 mmol/L (136-145)
--- NOTE | 2018-12-17 08:40 | PN ---
Subjective: She is doing a lot better than yesterday. Her Xanax helped her in anxiety. Lying in the bed with pain and waiting for surgery is making her very anxious. Objective: Vital signs: Blood pressure 118/58, temperature 97.7, pulse is 70, respirations 17, O2 saturation 96% 2 LT. HEENT: No JVD. No carotid bruits. Abdomen: Morbid obesity. No guarding, no rebound, no rigidity. Chest: Clear breath sounds bilaterally. Heart: Regular. Laboratory And X-ray Data: ABG 7.43, pCO2 of 36, PO2 of 50. Chest x-ray yesterday showed mild CHF. Lab examination today white count 6900, hemoglobin 9.9, hematocrit 29. On lab examination, normal sodium, BUN and creatinine 14 and 1.2. BNP was 4400 yesterday. Urinalysis and culture showed E coli. This was a straight cath culture sensitive to ZOSYN. Assessment And Plan: 1. Preop clearance, [id number] risk with multiple medical problems including coronary artery disease, status post bypass; morbid obesity; chronic obstructive pulmonary disease; hypoxia. Dr. Denis has been consulted also, but I anticipate complications of the extubation after surgery. 2. Chronic obstructive pulmonary disease exacerbation. Continue Xopenex has worked well for her. Avoid steroids if I can. Xopenex and Atrovent q.6 hours from next anxiety disorder. She is given Xanax p.r.n., which has worked well for her. 3. Hip fracture as described above. 4. Urinary tract infection. She is actually allergic to Rocephin. We talked about this more previously. Currently, she is on ampicillin as Bactrim did not work. Ampicillin is resistant. Levaquin is okay, but she is allergic to quinolone and Zosyn is okay, so we will private branch exchange service adviser to Zosyn instead of ampicillin. Prognosis overall guarded. Patient's is aware. JAGDEEP/NEIL Voice ID: [id number] Report ID: [id number] BLAIR
[2018-12-17] MEDS: ASPIRIN EC 81 MG TAB PO SCH (08:54)
[2018-12-17] MEDS: CLOPIDOGREL 75 MG TABLET PO SCH (08:54)
[2018-12-17] MEDS ORDERED: POTASSIUM CL SA 10 MEQ TAB PO ONE (09:00)
[2018-12-17 10:13] VITALS: O2SAT 92
--- NOTE | 2018-12-17 13:54 | P.DS ---
Admission Date: 12/12/18 Discharge Date: 12/17/18 Disposition: TRANSFER TO JAIL Discharge Condition: FAIR Reason for Admission: Hip fracture - Problems (1) Closed left hip fracture Current Visit: Yes Status: Acute (2) Preoperative clearance Current Visit: Yes Status: Acute (3) History of coronary artery disease Onset Date: 02/02/17 Current Visit: No Status: Chronic (4) Hypertension Onset Date: 02/02/17 Current Visit: No Status: Acute Qualifiers: Hypertension type: essential hypertension Qualified Code(s): I10 - Essential (primary) hypertension (5) Diabetes type 2 with atherosclerosis of arteries of extremities Onset Date: 02/02/17 Current Visit: No Status: Chronic Brief History of Present Illness: MS. SUTHERLAND IS A PATIENT WHO IS OBESE, HAS CAD, DJD, FIBROMYALGIA, AT HOME IN THE CLOSET PUTTING PANTS ON SHE FELL AND BROKE L HIP. SHE DENIES CHEST PAIN BUT HAS MODERATE PAIN IN L HIP. Hospital Course: MS. SUTHERLAND CAME WITH BROKEN HIP, FALLING IN HER CLOSET TRYING TO GET PANTS ON. SHE WAS VERY ANXIOUS AND BREATHED RAPIDLY. SHE ALSO HAS COPD AND CAD. SHE DID WELL WITH SURGERY BUT NOT ABLE TO COOPERATE FOR REHAB FOR 3 HOURS. SHE IS NOW SENT TO [facility] TODAY. I WENT OVER ALL MEDS WITH ANISA FREITAS. AND ADDED XARELTO 10 MG PO DAILY FOR DVT PROPHYLAXIS. Vital Signs/Physical Exam: Temp Pulse Resp BP Pulse Ox 97.4 F 75 20 161/66 H 92 12/17/18 12:00 12/17/18 12:00 12/17/18 12:00 12/17/18 12:00 12/17/18 12:00 Laboratory Data at Discharge: WBC 8.7 K/uL (4.3-10.9) 12/17/18 05:50 Hgb 9.5 g/dL (12.0-15.0) L 12/17/18 05:50 Hct 26.7 % (36.0-45.0) L 12/17/18 05:50 Plt Count 267 K/uL (152-406) 12/17/18 05:50 Sodium 134 mmol/L (136-145) L 12/17/18 05:50 Potassium 3.8 mmol/L (3.5-5.1) 12/17/18 05:50 BUN 12 mg/dL (7-18) 12/17/18 05:50 Creatinine 0.58 mg/dL (0.55-1.3) 12/17/18 05:50 Glucose 135 mg/dL (74-106) H 12/17/18 05:50 Magnesium 2.3 mg/dL (1.8-2.4) 12/17/18 05:50 Total Bilirubin 0.8 mg/dL (0.2-1.0) 12/12/18 14:20 AST 25 U/L (15-37) 12/12/18 14:20 ALT 19 U/L (12-78) 12/12/18 14:20 Alkaline Phosphatase 94 U/L (45-117) 12/12/18 14:20 Home Medications: Aspirin Tab [Wilver Aspirin*] 81 mg PO DAILY 06/26/14 Calc/Mag/Naveed/Br/Hb#180/Min#36 [Miseflex-C Tablet] 1 each PO BID 06/26/14 Doxepin HCl [Sinequan] 50 mg PO BEDTIME 06/26/14 Duloxetine HCl [Cymbalta] 60 mg PO DAILY 06/26/14 Fluticasone Propionate [Flonase] 16 gm NS DAILYPRN PRN 06/26/14 Gabapentin [Neurontin] 600 mg PO TID 06/26/14 Metformin ER [Glucophage ER*] 1,000 mg PO DAILY 06/26/14 Multivitamin [Multivitamins] 1 each PO DAILY 06/26/14 Pravastatin [Pravachol*] 40 mg PO BEDTIME 06/26/14 Carvedilol [Coreg*] 6.25 mg PO BID 11/03/18 Spironolactone 100 mg PO DAILY PRN 11/03/18 Thyroid Tab [Sunset Thyroid*] 45 mg PO DAILY 11/03/18 Fluticasone/Umeclidin/Vilanter [Trelegy Ellipta 100-62.5-25] 1 each IH BID 12/13 Furosemide 40 mg PO DAILY PRN 12/13/18 Losartan/Hydrochlorothiazide [Hyzaar 100-25 Tablet] 1 each PO DAILY 12/13/18 Sulfamethoxazole/Trimethoprim [Bactrim 400-80 mg Tablet] 2 each PO BID 12/13/18 Tizanidine [Zanaflex] 4 mg PO BEDTIME PRN 12/13/18 Amoxicillin/Potassium Clav [Augmentin 875-125 Tablet] 1 each PO BID 5 Days #10 tablet 12/17/18 Rivaroxaban [Xarelto] 10 mg PO DAILY #30 tablet 12/17/18 New Medications: Amoxicillin/Potassium Clav [Augmentin 875-125 Tablet] 1 each PO BID 5 Days #10 tablet Rivaroxaban [Xarelto] 10 mg PO DAILY #30 tablet
[2018-12-17 17:01] VITALS: BP 162/64; TEMP 97.6
== END 2018-12-17 16:40 | DRG 481 ==
LOC: ER 13:45 → ERHOLD 17:15 → 4TH 19:36
PROVIDERS: ADMIT Internal Medicine; ATTEND Internal Medicine
PROC: 0QS736Z Reposition Left Upper Femur with Intramedullary Internal Fixation Device, Percutaneous Approach (ICD-10-PCS; principal; 2018-12-14 12:00)
DX: S72.142A Displaced intertrochanteric fracture of left femur, initial encounter for closed fracture (principal); J44.1 Chronic obstructive pulmonary disease with (acute) exacerbation; Z68.41 Body mass index [BMI] 40.0-44.9, adult; N39.0 Urinary tract infection, site not specified; W18.30XA Fall on same level, unspecified, initial encounter; Y92.003 Bedroom of unspecified non-institutional (private) residence as the place of occurrence of the external cause; I25.10 Atherosclerotic heart disease of native coronary artery without angina pectoris; E11.9 Type 2 diabetes mellitus without complications; E66.01 Morbid (severe) obesity due to excess calories; M79.7 Fibromyalgia; M19.90 Unspecified osteoarthritis, unspecified site; Z95.0 Presence of cardiac pacemaker; Z95.1 Presence of aortocoronary bypass graft; Z95.2 Presence of prosthetic heart valve; Z95.5 Presence of coronary angioplasty implant and graft; Z86.73 Personal history of transient ischemic attack (TIA), and cerebral infarction without residual deficits; Z87.891 Personal history of nicotine dependence; Z79.82 Long term (current) use of aspirin; R09.02 Hypoxemia; B96.20 Unspecified Escherichia coli [E. coli] as the cause of diseases classified elsewhere; I11.0 Hypertensive heart disease with heart failure; I50.9 Heart failure, unspecified
CPT/HCPCS: 36415; 51702; 71045; 72170; 73530; 80048; 80053; 81003; 81015; 82565; 82805; 82962; 83605; 83735; 83880; 84145; 84520; 85025; 87077; 87086; 87088; 87186; 93306; 94640; 96361; 96365; 96375; 97110; 97112; 97161; 97530; 99285; J0290; J1170; J1940; J2250; J2270; J2405; J2543; J2550; J2704; J2710; J3010; J7030

== ENCOUNTER 2019-03-17 12:09 | Emergency (ER) | payer OTHER, BC ==
--- NOTE | 2019-03-17 12:45 | EKG ---
Test Date: 2019-03-17 Test Time: 12:34:34 Front Window Cashier: ARJUN MEASUREMENT RESULTS: Intervals: Rate: 86 MD: QRSD: 184 QT: 452 QTc: 540 [place]: P: MD: QRS: 145 T: 21 INTERPRETIVE STATEMENTS: Electronic ventricular pacemaker Compared to ECG 02/01/2017 15:48:32 Sinus rhythm no longer present First degree AV block no longer present Left-axis deviation no longer present Myocardial infarct finding no longer present Electronically Signed On 03-17-19 12:42:30 OB/GYN NURSE by Dash Squires
[2019-03-17 13:03] LABS: Absolute Lymphocytes (CBC) 1.5 K/uL (0.7-4.9); Basophils % 0.8 % (0-1.3); Hematocrit 36.6 % (36.0-45.0); Lymphocytes % 21.2 % (15.3-44.8); MPV 9.5 fL (7.6-11.3)
--- NOTE | 2019-03-17 13:04 | RAD REPORT ---
EXAM DESCRIPTION: Jenae Single View03/17/2019 12:55 pm CLINICAL HISTORY: Chest pain COMPARISON: November 2018 FINDINGS: The lungs appear clear of acute infiltrate. The heart is mildly enlarged. Postsurgical changes involve the chest. Pacemaker leads in place IMPRESSION: No acute abnormalities displayed
--- NOTE | 2019-03-17 13:51 | ER ---
Nurse's Notes [facility] Name: Yahaira Serna Age: 79 yrs Sex: Female : 1940 Arrival Date: 03/17/2019 Time: 12:09 Bed 2 Private MD: Jhon Kelley V Diagnosis: Encounter for adjustment and management of cardiac pacemaker Presentation: 03/17 12:31 Presenting complaint: Patient states: sent by her [facility] nurses because they heard a sv "swishing" noise. Pt c/o "seeing the pacemaker bumping up, it happens all the time." Reports she has called [facility] and they say everything is fine. Transition of care: patient was not received from another setting of care. Onset of symptoms was 2018. Risk Assessment: Do you want to hurt yourself or someone else? Patient reports no desire to harm self or others. Initial Sepsis Screen: Does the patient meet any 2 criteria? No. Patient's initial sepsis screen is negative. Does the patient have a suspected source of infection? No. Patient's initial sepsis screen is negative. Care prior to arrival: None. 12:31 Method Of Arrival: Wheelchair sv 12:31 Acuity: LIO 3 sv Triage Assessment: 12:31 General: Appears in no apparent distress. comfortable, well groomed, well developed, sv Behavior is calm, cooperative, appropriate for age. Pain: Denies pain. Neuro: Level of Consciousness is awake, alert, obeys commands, Oriented to person, place, time, situation, Moves all extremities. Full function Gait is steady. Cardiovascular: Patient's skin is warm and dry. Rhythm is A-V sequential pacer with capture. Respiratory: Airway is patent Respiratory effort is even, unlabored, Respiratory pattern is regular, symmetrical. Derm: Skin is pink, warm \\T\\ dry. Historical: - Allergies: 12:35 Cefzil; sv 12:35 Ciprofloxacin; sv 12:35 Keflex; sv 12:35 Quinilones; sv - Home Meds: 12:35 Hyzaar 100-25 mg Oral tab 1 tab once daily [Active]; aspirin 81 mg Oral chew 1 tab once sv daily [Active]; doxepin 50 mg Oral cap nightly [Active]; Cymbalta 60 mg Oral cpDR 1 cap once daily [Active]; Flonase 50 mcg/actuation Nasal spsn 2 sprays once daily [Active]; benzonatate 100 mg Oral cap [Active]; tramadol 50 mg Oral tab [Active]; Neurontin 600 mg Oral tab 1 tab 3 times per day [Active]; pravastatin 40 mg Oral tab 1 tab once daily [Active]; Plavix 75 mg Oral tab 1 tab once daily [Active]; metformin 1,000 mg Oral tab 1 tab 2 times per day [Active]; Alva Thyroid 15 mg Oral tab daily [Active]; Coreg Oral [Active]; losartan 25 mg Oral tab [Active]; Lasix 40 mg Oral tab 1 tab once daily [Active]; spironolactone 100 mg Oral tab 1 tab once daily [Active]; - PMHx: 12:35 Anxiety; CAD; Chronic fatigue syndrome; COPD; Depression; CVA; Diabetes - NIDDM; sv dyspnea; Fibromyalgia; Hypercoagulation; Hypertension; Pacemaker; Sleep Apnea; - PSHx: 12:35 Shoulder Surgery; Carotid Artery Stents; CABG; sv - Immunization history:: Adult Immunizations up to date. - Social history:: Smoking status: Patient/guardian denies using tobacco. - Ebola Screening: : No symptoms or risks identified at this time. - Family history:: not pertinent. - Hospitalizations: : No recent hospitalization is reported. Screenin:35 Abuse screen: Denies threats or abuse. Denies injuries from another. Nutritional sv screening: No deficits noted. Tuberculosis screening: No symptoms or risk factors identified. Fall Risk None identified. Assessment: 13:25 Reassessment: Pt taken to the restroom via wheelchair, pt able to transfer herself from stretcher to wheelchair with her walker with no difficulty noted. 13:38 Reassessment: Patient appears in no apparent distress at this time. No changes from sv previously documented assessment. Patient and/or family updated on plan of care and expected duration. Pain level reassessed. Patient is alert, oriented x 3, equal unlabored respirations, skin warm/dry/pink. 13:40 Reassessment: Dr Stanley at the bedside speaking with pt regarding POC. sv 14:06 Reassessment: Patient appears in no apparent distress at this time. No changes from sv previously documented assessment. Patient and/or family updated on plan of care and expected duration. Pain level reassessed. Patient is alert, oriented x 3, equal unlabored respirations, skin warm/dry/pink. Vital Signs: 12:35 BP 119 / 49; Pulse 76 MON; Resp 19; Temp 98; Pulse Ox 95% ; Pain 0/10; sv 13:15 BP 138 / 69; Pulse 74; Resp 19; Pulse Ox 96% ; sv 14:00 BP 130 / 72; Pulse 75; Resp 16; Pulse Ox 99% ; sv 12:35 Paced sv ED Course: 12:09 Patient arrived in ED. as 12:10 Jhon Kelley MD is Private Physician. as 12:18 Francisco Javier Stanley MD is Attending Physician. rn 12:18 Alecia Morales RN is Primary Nurse. sv 12:33 Triage completed. sv 12:35 Arm band placed on Patient placed in an exam room, on a stretcher, on groundwater monitoring technician, sv on pulse oximetry. 12:35 Patient has correct armband on for positive identification. Placed in gown. Bed in low sv position. Call light in reach. Side rails up X2. Adult w/ patient. nuclear monitoring technician on. Pulse ox on. NIBP on. Door closed. Warm blanket given. Head of bed elevated. 12:40 Inserted saline lock: 22 gauge in right forearm, using aseptic technique. ,using sv aseptic technique. diffusics Blood collected. Flushed right forearm with 5 ml normal saline. 12:43 EKG done, by electrical power station technician. reviewed by Francisco Javier Stanley MD. at1 12:46 Awaiting lab results, Awaiting radiology results. sv 12:46 X-ray(s) taken. sv 12:46 XRAY Chest (1 view) Sent. sv 12:54 XRAY Chest (1 view) In Process Unspecified. EDMS 13:38 Awaiting disposition, Awaiting re-evaluation by ER provider. sv 13:50 Dash Squires MD is Referral Physician. rn 14:06 No provider procedures requiring assistance completed. IV discontinued, intact, sv bleeding controlled, No redness/swelling at site. Pressure dressing applied. Administered Medications: No medications were administered Outcome: 13:50 Discharge ordered by MD. rn 14:06 Discharged to home ambulatory, with family, with her walker, pt is going straight to Dr artis Squires's office. 14:06 Condition: stable 14:06 Discharge instructions given to patient, family, Instructed on discharge instructions, follow up and referral plans. Demonstrated understanding of instructions, follow-up care. 14:07 Patient left the ED. sv Signatures: Dispatcher [employer] Alecia Pearl RN RN sv Martinez, Amelia as Nieto, Roman, MD MD rn Gonzales, Amanda, silk trimmer EKG Tat1
--- NOTE | 2019-03-17 13:51 | EDPHYS ---
Physician Documentation [facility] Name: Yahaira Serna Age: 79 yrs Sex: Female : 1940 Arrival Date: 03/17/2019 Time: 12:09 Bed 2 Private MD: Jhon Kelley V ED Physician Francisco Javier Stanley HPI: 03/17 12:40 This 79 yrs old Female presents to ER via Wheelchair with complaints of rn pacemaker sound. 12:40 Reports has been happening for months, but today home health came by and noticed rn buzzing sound. Patient also states has intermittent twitching of muscles around pacemaker and left chest. No chest pain. No shocks. No syncope. Reports placed this past summer, and no complications. came solely because told to by home health. No recent trauma. . Onset: The symptoms/episode began/occurred at an unknown time. Severity of symptoms: At their worst the symptoms were mild in the emergency department the symptoms are unchanged. The patient has experienced similar episodes in the past. The patient has not recently seen a physician. Historical: - Allergies: 12:35 Cefzil; sv 12:35 Ciprofloxacin; sv 12:35 Keflex; sv 12:35 Quinilones; sv - Home Meds: 12:35 Hyzaar 100-25 mg Oral tab 1 tab once daily [Active]; aspirin 81 mg Oral chew 1 tab once sv daily [Active]; doxepin 50 mg Oral cap nightly [Active]; Cymbalta 60 mg Oral cpDR 1 cap once daily [Active]; Flonase 50 mcg/actuation Nasal spsn 2 sprays once daily [Active]; benzonatate 100 mg Oral cap [Active]; tramadol 50 mg Oral tab [Active]; Neurontin 600 mg Oral tab 1 tab 3 times per day [Active]; pravastatin 40 mg Oral tab 1 tab once daily [Active]; Plavix 75 mg Oral tab 1 tab once daily [Active]; metformin 1,000 mg Oral tab 1 tab 2 times per day [Active]; [place] Thyroid 15 mg Oral tab daily [Active]; Coreg Oral [Active]; losartan 25 mg Oral tab [Active]; Lasix 40 mg Oral tab 1 tab once daily [Active]; spironolactone 100 mg Oral tab 1 tab once daily [Active]; - PMHx: 12:35 Anxiety; CAD; Chronic fatigue syndrome; COPD; Depression; CVA; Diabetes - NIDDM; sv dyspnea; Fibromyalgia; Hypercoagulation; Hypertension; Pacemaker; Sleep Apnea; - PSHx: 12:35 Shoulder Surgery; Carotid Artery Stents; CABG; sv - Immunization history:: Adult Immunizations up to date. - Social history:: Smoking status: Patient/guardian denies using tobacco. - Ebola Screening: : No symptoms or risks identified at this time. - Family history:: not pertinent. - Hospitalizations: : No recent hospitalization is reported. ROS: 12:40 Constitutional: Negative for fever, chills, and weight loss, Eyes: Negative for injury, rn pain, redness, and discharge, Neck: Negative for injury, pain, and swelling, Cardiovascular: Negative for chest pain, and edema, Respiratory: Negative for cough, wheezing, and pleuritic chest pain, Abdomen/GI: Negative for abdominal pain, nausea, vomiting, diarrhea, and constipation, MS/Extremity: Negative for injury and deformity, Skin: Negative for injury, rash, and discoloration, Neuro: Negative for headache, weakness, numbness, tingling, and seizure. Exam: 12:40 Constitutional: Overweight woman, no acute distress Head/Face: Normocephalic, rn atraumatic. ENT: MMM, no stridor Cardiovascular: Regular rate and rhythm, + loud buzzing/humming sound that gets louder as approach pacemaker pocket. Respiratory: No increased work of breathing, no retractions or nasal flaring. Abdomen/GI: soft, non-tender Skin: Warm, dry with normal turgor. Normal color with no rashes, no lesions, and no evidence of cellulitis. MS/ Extremity: Pulses equal, no cyanosis. Neuro: Awake and alert, GCS 15, oriented to person, place, time, and situation. Motor strength 5/5 in all extremities. Sensory grossly intact. 12:57 ECG was reviewed by the Attending Physician. rn Vital Signs: 12:35 BP 119 / 49; Pulse 76 MON; Resp 19; Temp 98; Pulse Ox 95% ; Pain 0/10; sv 13:15 BP 138 / 69; Pulse 74; Resp 19; Pulse Ox 96% ; sv 14:00 BP 130 / 72; Pulse 75; Resp 16; Pulse Ox 99% ; sv 12:35 Paced sv MDM: 12:18 Patient medically screened. rn 13:48 Differential Diagnosis pacemaker dysfunction, battery problem, lead fracture, lead rn insulation problem, communication problem.. Data reviewed: vital signs, nurses notes, lab test result(s), EKG, radiologic studies, plain films, and as a result, I will discharge patient. Counseling: I had a detailed discussion with the patient and/or guardian regarding: the historical points, exam findings, and any diagnostic results supporting the discharge/admit diagnosis, lab results, radiology results, the need for outpatient follow up, to return to the emergency department if symptoms worsen or persist or if there are any questions or concerns that arise at home. Special discussion: I discussed with the patient/guardian in detail that at this point there is no indication for admission to the hospital. It is understood, however, that if the symptoms persist or worsen the patient needs to return immediately for re-evaluation. Based on the history and exam findings, there is no indication for further emergent testing or inpatient evaluation. I discussed with the patient/guardian the need to see the bookkeeper for further evaluation of the symptoms. ED course: Labs unremarkable, ECG and monitor shows pacemaker functioning and pacing, called [facility] without any call back. Consulted with Dr. Squires, who requests dc from ER, straight to his clinic, and will have pacemaker interrogated there. . 03/17 12:36 Order name: CBC with Diff; Complete Time: 13:15 rn 03/17 12:36 Order name: Basic Metabolic Panel; Complete Time: 13:33 rn 03/17 12:36 Order name: IV Start; Complete Time: 12:46 rn 03/17 12:36 Order name: EKG; Complete Time: 12:38 rn 03/17 12:36 Order name: EKG - Nurse/Tech; Complete Time: 12:36 rn 03/17 12:36 Order name: XRAY Chest (1 view); Complete Time: 13:15 rn EC:57 Rate is 86 beats/min. Rhythm is regular. QRS interval is prolonged. QT interval is rn prolonged. No Q waves. No ST changes noted. Clinical impression: Electronic pacemaker. Interpreted by me. Reviewed by me. Administered Medications: No medications were administered Disposition: 03/17/19 13:50 Discharged to Home. Impression: Encounter for adjustment and management of cardiac pacemaker. - Condition is Stable. - Discharge Instructions: Pacemaker Implantation, Adult. - Medication Reconciliation Form, Thank You Letter, Antibiotic Education, Prescription Opioid Use form. - Follow up: Dash Squires MD; When: Upon discharge from the Emergency Department; Reason: Recheck today's complaints, Re-evaluation by your physician. - Problem is new. - Symptoms have improved. Signatures: Dispatcher [employer] Alecia Pearl RN RN Francisco Javier Castellano MD MD biomedical engineering internship: (The following items were deleted from the chart) 14:07 13:50 03/17/2019 13:50 Discharged to Home. Impression: Encounter for adjustment and sv management of cardiac pacemaker. Condition is Stable. Forms are Medication Reconciliation Form, Thank You Letter, Antibiotic Education, Prescription Opioid Use. Follow up: Dash Squires; When: Upon discharge from the Emergency Department; Reason: Recheck today's complaints, Re-evaluation by your physician. Problem is new. Symptoms have improved. rn
[2019-03-17 16:08] VITALS: TEMP 98
[2019-03-17 16:11] VITALS: BP 130/72; O2SAT 99
== END 2019-03-17 14:07 | disposition home or self-care (01) ==
LOC: ER 12:09
DX: Z45.018 Encounter for adjustment and management of other part of cardiac pacemaker (principal); I10 Essential (primary) hypertension; E11.9 Type 2 diabetes mellitus without complications; F32.9 Major depressive disorder, single episode, unspecified; F41.9 Anxiety disorder, unspecified; J44.9 Chronic obstructive pulmonary disease, unspecified; Z79.01 Long term (current) use of anticoagulants; Z79.82 Long term (current) use of aspirin; Z86.73 Personal history of transient ischemic attack (TIA), and cerebral infarction without residual deficits; Z88.1 Allergy status to other antibiotic agents; Z88.5 Allergy status to narcotic agent; Z88.8 Allergy status to other drugs, medicaments and biological substances; Z95.1 Presence of aortocoronary bypass graft
CPT/HCPCS: 36415; 71045; 80048; 85025; 93005; 99284

== ENCOUNTER 2019-04-11 16:03 | Observation (INO) | payer OTHER, BC ==
[2019-04-11 17:03] VITALS: BMI 35.9
[2019-04-11 17:54] LABS: Basophils % 0.4 % (0-1.3); Hematocrit 35.2 % (36.0-45.0); Lymphocytes % 28.1 % (15.3-44.8); MPV 9.1 fL (7.6-11.3); RBC Red Blood Cell Count 3.85 M/uL (3.86-4.86)
[2019-04-11 18:08] LABS: Protime INR 0.99
[2019-04-11 18:34] LABS: ALT/SGPT 17 U/L (12-78); AST/SGOT 16 U/L (15-37); Alkaline Phosphatase 106 U/L (45-117); BUN Blood Urea Nitrogen 22 mg/dL (7-18); Bicarbonate 27 mmol/L (21-32); Bilirubin Direct 0.2 mg/dL (0-0.2); Bilirubin Total 0.5 mg/dL (0.2-1.0); Glucose Level 97 mg/dL (74-106); Magnesium 2.3 mg/dL (1.8-2.4); NT PRO-BNP 1400 pg/mL (<450); Phosphorus 4.1 mg/dL (2.5-4.9); Potassium 4.3 mmol/L (3.5-5.1); Sodium Level 135 mmol/L (136-145); Troponin I < 0.02 ng/mL (0.0-0.045)
--- NOTE | 2019-04-11 20:03 | RAD REPORT ---
EXAM DESCRIPTION: CT - Chest For Pe Angio - 04/11/2019 7:29 pm CLINICAL HISTORY: R/O PE COMPARISON: No comparisons TECHNIQUE: Dynamically enhanced 3 mm thick images of the chest were obtained during administration o f approximately 150mL Isovue 370 IV contrast. Coronal and oblique MIP reconstruction images were gene rated and reviewed. Exam utilizes a protocol to evaluate the pulmonary arterial tree. All CT scans are performed using dose optimization technique as appropriate and may include automated exposure control or mA/KV adjustment according to patient size. FINDINGS: No pulmonary emboli are identified. Pulmonary arteries are enlarged. The aorta as imaged shows no acute or suspicious finding. Stenting of the ascending aorta is present. Cardiomegaly is present without pericardial thickening or effusion. Motion degradation limits assessment of the lung parenchyma. No mass or consolidation. Interstitial e timothy or infiltrate are not entirely excluded. No mass or consolidation. Small bilateral pleural effus ions are present. No pneumothorax. No mediastinal or hilar suspicious masses. No chest wall masses or abnormal axillary lymphadenopathy. IMPRESSION: No pulmonary emboli identified. Pulmonary artery enlargement. Motion limits lung parenchymal assessment. Interstitial edema or infilt rate not excluded. Small bilateral pleural effusions. Cardiomegaly without pericardial effusion.
[2019-04-11] MEDS ORDERED: TRAMADOL HCL 50 MG TAB PO PRN (21:14)
[2019-04-11] MEDS ORDERED: TIZANIDINE 4 MG TABLET PO PRN (21:14)
[2019-04-11] MEDS ORDERED: FUROSEMIDE 20 MG/ 2ML VIAL IV ONE (21:32)
[2019-04-11] MEDS ORDERED: KCL 10 MEQ/100 ML IVPB 10 MEQ/100 ML BAG IV ONE (21:35)
[2019-04-11] MEDS ORDERED: DOXEPIN HCL 25 MG CAP PO SCH (22:00)
[2019-04-11] MEDS ORDERED: KCL 20 MEQ/100 mL IVPB 20 MEQ/100 ML BAG IV ONE (22:04)
[2019-04-11] MEDS ORDERED: NA CHLORIDE 0.9% 100 ML ONE (22:05)
[2019-04-11 22:12] LABS: Urine Appearance CLEAR; Urine Bilirubin NEGATIVE (NEG); Urine Blood NEGATIVE (NEG); Urine Color YELLOW; Urine Glucose NEGATIVE (NEG); Urine Protein NEGATIVE (NEG); Urine Specific Gravity >=1.030 (1.005-1.030); Urine Urobilinogen 0.2 mg/dL (0.2-1.0); Urine pH 6.5 (5.0-7.0)
[2019-04-11 22:16] LABS: Urine Microscopic Reflex ORDER UMIC
[2019-04-11] MEDS ORDERED: GABAPENTIN 300 MG CAP PO SCH (23:00)
[2019-04-11 23:41] LABS: Urine Culture Reflex Order NOT NEEDED; Urine Urothelial Cells <5 /HPF (NONE SEEN)
[2019-04-11 23:42] LABS: Urine Bacteria <20 /HPF (<20); Urine RBC NONE SEEN /HPF (NONE SEEN)
[2019-04-12 04:25] LABS: Absolute Lymphocytes (CBC) 1.9 K/uL (0.7-4.9); Basophils % 0.7 % (0-1.3); Hematocrit 35.1 % (36.0-45.0); Lymphocytes % 31.1 % (15.3-44.8); MPV 9.1 fL (7.6-11.3); RBC Red Blood Cell Count 3.79 M/uL (3.86-4.86)
[2019-04-12 04:30] LABS: Potassium 4.1 mmol/L (3.5-5.1)
[2019-04-12] MEDS ORDERED: THYROID 30 MG TAB PO SCH (06:00)
[2019-04-12] MEDS ORDERED: GLUCAGON 1 MG/VIAL IM PRN (06:39)
[2019-04-12] MEDS ORDERED: D50W 25 GM/50 ML SYRINGE/VIAL IV PRN (06:39)
[2019-04-12] MEDS: INSULIN -REGULAR HUMAN 50 UNIT/0.5 ML ML SQ SCH ×2 (07:30→11:30)
[2019-04-12] MEDS ORDERED: METFORMIN HCL 500 MG TAB PO SCH (08:00)
[2019-04-12] MEDS ORDERED: DULOXETINE 20 MG CAP PO SCH (09:00)
[2019-04-12] MEDS ORDERED: HOME MED 1 EA UNK (Fluticasone/Umeclidin/Vilanter [Trelegy Ellipta 100-62.5-25] 1 PUFF) IH SCH (09:00)
[2019-04-12] MEDS ORDERED: KCL 10 MEQ/100 ML IVPB 10 MEQ/100 ML BAG IV SCH (09:00)
[2019-04-12] MEDS ORDERED: POTASSIUM CL SA 10 MEQ TAB PO SCH (09:00)
[2019-04-12] MEDS ORDERED: CLOPIDOGREL 75 MG TABLET PO SCH (09:00)
[2019-04-12] MEDS ORDERED: MAGNESIUM OXIDE 400 MG TAB PO SCH (09:00)
[2019-04-12] MEDS ORDERED: ASPIRIN 81 MG CHEWABLE TABLET PO SCH (09:00)
[2019-04-12] MEDS ORDERED: carvediloL 6.25 MG TAB PO SCH (09:00)
[2019-04-12] MEDS ORDERED: FUROSEMIDE 20 MG/ 2ML VIAL IV SCH (09:00)
[2019-04-12] MEDS ORDERED: LOSARTAN POTASSIUM 50 MG TABLET PO SCH (09:00)
[2019-04-12 11:45] VITALS: O2SAT 95
[2019-04-12 12:03] VITALS: BP 146/65; TEMP 97
--- NOTE | 2019-04-12 12:48 | ECHO ---
HEIGHT: 5 ft 3 in WEIGHT: 203 lb 0 oz DATE OF STUDY: 04/12/[address]: Jhon Kelley MD 2-DIMENSIONAL: YES M.MODE: YES DOPPLER: YES COLOR FLOW: YES TDS: NO PORTABLE: NO DEFINITY: NO BUBBLE STUDY: NO DIAGNOSIS: DYSPNEA/HYPOXIA CARDIAC HISTORY: CATHERIZATION: YES SURGERY: YES PROSTHETIC VALVE: YES PACEMAKER: NO MEASUREMENTS (cm) DIASTOLIC (NORMALS) SYSTOLIC (NORMALS) IVSd 1.3 (0.6-1.2) LA Diam 4.0 (1.9-4.0) LVEF 72% LVIDd 4.7 (3.5-5.7) LVIDs 2.8 (2.0-3.5) %FS 41% LVPWd 1.5 (0.6-1.2) Ao Diam 2.0 (2.0-3.7) 2 DIMENSIONAL ASSESSMENT: RIGHT ATRIUM: NORMAL LEFT ATRIUM: NORMAL RIGHT VENTRICLE: NORMAL LEFT VENTRICLE: LEFT VENTRICULAR HYPERTROPHY TRICUSPID VALVE: NORMAL MITRAL VALVE: STENOSIS PULMONIC VALVE: NORMAL AORTIC VALVE: STATUS POST TRANSCATHETER AORTIC VALVE REPLACEMENT PERICARDIAL EFFUSION: NONE AORTIC ROOT: NORMAL LEFT VENTRICULAR WALL MOTION: NORMAL. DOPPLER/COLOR FLOW: MILD MITRAL AND TRICUSPID REGURGITATION. MILD MITRAL STENOSIS. 1.7 CENTIMETERS SQUARED. COMMENTS: NORMAL LEFT VENTRICULAR EJECTION FRACTION. LEFT VENTRICULAR HYPERTROPHY. MILD MITRAL STENOSIS- AREA 1.7 CENTIMETER SQUARED. STATUS POST TRANSCATHETER AORTIC VALVE REPLACEMENT NORMAL FUNCTION. MILD MITRAL AND TRICUSPID REGURGITATION NORMAL RIGHT VENTRICULAR SYSTOLIC PRESSURE. NO CHANGE FROM 12/16. TECHNOLOGIST: DOUGLAS ALLISON
[2019-04-12] MEDS ORDERED: ATORVASTATIN 10 MG TAB PO SCH (21:00)
== END 2019-04-12 14:29 | disposition home or self-care (01) ==
LOC: 4TH 16:10
PROVIDERS: ADMIT Internal Medicine; ATTEND Internal Medicine
DX: J44.9 Chronic obstructive pulmonary disease, unspecified (principal); I10 Essential (primary) hypertension; E11.9 Type 2 diabetes mellitus without complications; G47.33 Obstructive sleep apnea (adult) (pediatric); I25.10 Atherosclerotic heart disease of native coronary artery without angina pectoris; Z95.0 Presence of cardiac pacemaker; E03.9 Hypothyroidism, unspecified
CPT/HCPCS: 93306; 87088; 85025 ×2; 87086; 80048 ×2; 36415 ×2; 83735; 84100; 85610; 82947 ×3; 85379; 80076; 85730; 84443; 84484; 82607; 82306; 83880; 71275; 94760; Q9967; G0379; J1940 ×2; J3480 ×2; G0378 ×3; 81003; 81015

== ENCOUNTER 2019-06-26 09:21 | Inpatient (IN) | payer OTHER ==
[2019-07-03 04:46] VITALS: O2SAT 98
[2019-07-03 04:48] VITALS: TEMP 99.3
[2019-07-03 05:25] VITALS: BMI 29.9
[2019-07-03 15:05] VITALS: BP 180/57
== END 2019-07-03 15:45 | DRG 207 ==
LOC: ER 09:21 → ERHOLD 14:47 → 3RD-ICU 18:16
PROVIDERS: ADMIT Internal Medicine; ATTEND Internal Medicine
PROC: 0BH17EZ Insertion of Endotracheal Airway into Trachea, Via Natural or Artificial Opening (ICD-10-PCS; principal; 2019-06-26)
PROC: 5A1955Z Respiratory Ventilation, Greater than 96 Consecutive Hours (ICD-10-PCS; 2019-06-26)
DX: J96.00 Acute respiratory failure, unspecified whether with hypoxia or hypercapnia (principal); J44.1 Chronic obstructive pulmonary disease with (acute) exacerbation; G93.1 Anoxic brain damage, not elsewhere classified; M31.9 Necrotizing vasculopathy, unspecified; I25.10 Atherosclerotic heart disease of native coronary artery without angina pectoris; I10 Essential (primary) hypertension; F41.9 Anxiety disorder, unspecified; R53.82 Chronic fatigue, unspecified; R50.9 Fever, unspecified; E11.59 Type 2 diabetes mellitus with other circulatory complications; E66.01 Morbid (severe) obesity due to excess calories; G47.30 Sleep apnea, unspecified; M79.7 Fibromyalgia; M19.90 Unspecified osteoarthritis, unspecified site; Z95.5 Presence of coronary angioplasty implant and graft; Z68.29 Body mass index [BMI] 29.0-29.9, adult; Z86.73 Personal history of transient ischemic attack (TIA), and cerebral infarction without residual deficits; Z95.0 Presence of cardiac pacemaker
CPT/HCPCS: 31500; 36415; 51702; 70450; 71045; 71260; 72170; 76700; 80048; 80076; 81001; 82140; 82150; 82550; 82553; 82805; 82947; 83605; 83690; 83880; 84132; 84145; 84443; 84484; 85025; 85610; 85730; 87040; 87070; 87205; 87804; 93005; 93306; 94002; 94003; 94640; 94660; 95816; 99291; J0330; J0360; J0456; J1630; J1650; J1940; J2250; J2704; J3010; J3370; J3411; J3486; J7030; Q9967; U0001